=== PATIENT | female | born 1985 | race Caucasian/White ===

== ENCOUNTER 2016-09-03 00:33 | Inpatient (IN) | payer BC ==
[~2016-09-03] VITALS: Ht 162.6 cm; Wt 75.5 kg
[~2016-09-03 00:33] MED LIST: ACET-1256 PO; ALLDSR/24 PO
[2016-09-11 08:59] LABS: HEMATOCRIT 37.9 % (37-47); MEAN CORPUSCULAR HEMOGLOBIN 27.4 pg (25-34); MEAN CORPUSCULAR HGB CONC 32.2 g/dl (32-36); MEAN PLATELET VOLUME 10.2 fL (7.4-10.4); PLATELET COUNT 244 K/uL (130-400); RED BLOOD COUNT 4.46 M/uL (4.2-5.4); WHITE BLOOD COUNT 9.98 K/uL (4.8-10.8)
[2016-09-11] MEDS ORDERED: FLUCONAZOLE 100 MG TAB PO ONE (09:00)
[2016-09-11] MEDS ORDERED: LACTATED RINGER'S 1000ML 1,000 ML IV PRN (09:00)
[2016-09-11] MEDS: MISOPROSTOLTAB 50 MCG TAB PO SCH ×3 (09:02→17:53)
--- NOTE | 2016-09-11 09:03 | HISTORY & PHYSICAL EXAMINATION ---
DATE OF ADMISSION: 09/11/2016 CHIEF COMPLAINT: Scheduled induction of labor for post dates. HISTORY OF PRESENT ILLNESS: The patient is a 31-year-old female 1, para 0 at 41.1 weeks of gestation, which presenting for induction of labor for post dates. She has no complaints, no contractions, leakage of fluid, or vaginal bleeding. She reports good movements. She denies fever, chills, chest pain, shortness of breath, nausea, vomiting, epigastric or right upper quadrant pain. Her has been uncomplicated except reflux disease and constipation. PAST MEDICAL HISTORY: As above, allergic rhinitis, history of abnormal Pap smears and cryo of cervix. PAST SURGICAL HISTORY: Colposcopy with cryo in 2009. ALLERGIES: NITROFURANTOIN makes her dizzy, PYRIDIUM gives her nausea and vomiting. MEDICATIONS: Omeprazole 20 mg daily, Zantac 150 mg daily, Zoya 180 mg daily, and she does not take vitamins due to constipation. SOCIAL HISTORY: The patient denies smoking, alcohol or drug use. GYNECOLOGIC HISTORY: The patient denies any history of STDs including Chlamydia, gonorrhea, herpes. She has a history of HPV. LABS: Blood type is O positive, antibody screen negative, hepatitis B surface antigen negative, RPR nonreactive, rubella titer positive, GC chlamydia cultures were negative. One hour Glucola was 82 mg per deciliter. H\T\H was 11.8/35, platelets 333. GBS culture was negative on 07/31/2016. PHYSICAL EXAMINATION: GENERAL: The patient is alert, oriented x3, not in acute distress. VITAL SIGNS: Blood pressure is 108/73, pulse is 120. She is afebrile. CARDIOVASCULAR SYSTEM: S1, S2, RRR. LUNGS: Clear to auscultation bilaterally. ABDOMEN: Soft, gravid, Med 7 to 7-1/2 pounds. EXTREMITIES: Nontender, no edema. PELVIC EXAMINATION: She has a vulvar vaginal erythema, abundant white curdy discharge consistent with Kylee infection. Her cervix is 2 cm dilated, 50% effaced, posterior, -3, vertex. She is uncomfortable during exam. A bedside ultrasound was done and cephalic presentation. heart rate 140s, reactive, tocometer no contractions. ASSESSMENT AND PLAN: The patient is a 31-year-old G1, P0 at 41 weeks and 1 day of gestation presenting for induction of labor. Vital signs stable, afebrile. GBS negative. heart rate reassuring. She is found to have vaginal Kylee. Plan is admit, IV fluids, cervical ripening with misoprostol, Will avoid vaginal insertion due to ongoing Kylee and discomfort with exam. Start with oral misoprostol, Pitocin and AROM as needed Treat Kylee with 1 dose of Diflucan. She understands and agrees with the plan. All questions were answered. MTDD
[2016-09-11] MEDS: LACTATED RINGER'S 1000ML 1,000 ML IV SCH ×3 (09:07→20:08)
[2016-09-11 10:43] VITALS: Ht 162.6 cm; Wt 75.5 kg
[2016-09-11] MEDS ORDERED: ONDANSETRON INJ 2 MG/ML 2 ML VIAL IV PRN ×2 (11:00→20:15)
[2016-09-11] MEDS ORDERED: BUTORPHANOL TARTRATE 1 MG/ML VIAL IV PRN (11:00)
[2016-09-11] MEDS ORDERED: PRLSR20 PO (12:42)
[2016-09-11] MEDS ORDERED: RANI150T3 PO (12:42)
[2016-09-11] MEDS ORDERED: EpHEDrine SULFATE INJ 50 MG/ML AMP ONE (19:06)
[2016-09-11] MEDS ORDERED: BUPIVACAINE 0.25% 30 ML VIAL ONE ×2 (19:06→23:08)
[2016-09-11] MEDS ORDERED: FENTANYL 2MCG/ML ROPIV 1.25MG/ML 100ML BAG EPI ONE (19:06)
[2016-09-11] MEDS ORDERED: FENTANYL CITRATE INJ 50 MCG/1 ML 2 ML VIAL ONE ×2 (19:07→23:24)
[2016-09-11] MEDS ORDERED: LACTATED RINGER'S 1000ML 500 ML IV PRN ×2 (20:05→21:04)
[2016-09-11] MEDS ORDERED: NALOXONE HCL INJ 1 MG in SODIUM CHLORIDE 0.9% 1000ML 1,000 ML IV PRN ×4 (20:05)
[2016-09-11] MEDS ORDERED: EpHEDrine SULFATE INJ 50 MG/ML AMP IV PRN (20:15)
[2016-09-11] MEDS ORDERED: PROMETHAZINE HCL INJ 25 MG in SODIUM CHLORIDE 0.9% 50ML 50 ML IV PRN (20:15)
[2016-09-11] MEDS ORDERED: NALOXONE HCL 0.4 MG/1 ML VIAL/CARP IV PRN (20:15)
[2016-09-11] MEDS ORDERED: NALBUPHINE HCL INJ 10 MG/ML AMP IV PRN (20:15)
[2016-09-11] MEDS ORDERED: DiphenhydrAMINE HCL 50 MG/ML VIAL IV PRN (20:15)
[2016-09-11] MEDS ORDERED: FENTANYL 2MCG/ML ROPIV 1.25MG/ML 100ML BAG EPI PRN (20:15)
[2016-09-11] MEDS ORDERED: OXYTOCIN 30 UNITS/500ML NSS IV PRN (21:15)
[2016-09-11] MEDS ORDERED: CALCIUM CARBONATE 500 MG CHEWABLE PO PRN (23:45)
[2016-09-11] MEDS ORDERED: CALCIUM CARBONATE 500 MG CHEWABLE ONE (23:48)
[2016-09-12] VITALS (14 sets, daily range): BP systolic 88–113; BP diastolic 53–73; PULSE 65–97; TEMP 36.6–37.1; O2SAT 99–100
[2016-09-12] MEDS ORDERED: OXYTOCIN 30 UNITS/500ML NSS IV PRN (03:30)
[2016-09-12] MEDS ORDERED: SUPERCREAM 0.870 % 15GM JAR EXT PRN (03:30)
[2016-09-12] MEDS ORDERED: ACETAMINOPHEN 325 MG TAB PO PRN (03:30)
[2016-09-12] MEDS ORDERED: HYDROCORTISONE ACETATE 25 MG SUPP PR PRN (03:30)
[2016-09-12] MEDS ORDERED: D5W AND LACTATED RINGERS 1,000 ML IV SCH (03:30)
[2016-09-12] MEDS ORDERED: LANOLIN OINT EXT PRN ×2 (03:30)
[2016-09-12] MEDS ORDERED: ACETAMINOPHEN/CODEINE 300/30MG TAB PO ONE (04:31)
[2016-09-12] MEDS ORDERED: BENZOCAINE 20% AER SPR 82.5 GM CAN ONE (04:32)
[2016-09-12] MEDS ORDERED: IBUPROFEN 600 MG TAB ONE (04:32)
[2016-09-12] MEDS ORDERED: SODIUM CHLORIDE 0.9% 1000ML 1,000 ML IV SCH (07:30)
[2016-09-12 07:40] LABS: PARTIAL THROMBOPLASTIN RATIO 1.1; PROTHROMBIN TIME (PATIENT) 10.8 SECONDS (9.0-12.0)
[2016-09-12 07:43] LABS: HEMATOCRIT 23.9 % (37-47); MEAN CORPUSCULAR HEMOGLOBIN 28.8 pg (25-34); MEAN CORPUSCULAR HGB CONC 33.5 g/dl (32-36); MEAN PLATELET VOLUME 10.5 fL (7.4-10.4); PLATELET COUNT 195 K/uL (130-400); RED BLOOD COUNT 2.78 M/uL (4.2-5.4); WHITE BLOOD COUNT 19.53 K/uL (4.8-10.8)
--- NOTE | 2016-09-12 07:59 | Anesthesia Procedure Note ---
Anesthesia Epidural Removal Nt Date & Time September 12, 2016 at 07:58 Vital Signs Pain Intensity: 0.0 Notes Mental Status: alert / awake / arousable, participated in evaluation Nausea / Vomiting: adequately controlled Pain: adequately controlled Airway Patency, RR, SpO2: stable & adequate BP & HR: stable & adequate Hydration State: stable & adequate Neuraxial Anesthesia: was administered Anesthetic Complications: no major complications apparent, pt satisfied with anesthetic care Epidural: removed without complications, with tip intact
[2016-09-12] MEDS: OXYCODONE/ACETAMINOPHEN 5-325 TAB PO PRN ×2 (08:30→12:34)
[2016-09-12] MEDS: DOCUSATE SODIUM 100 MG CAP PO SCH ×2 (08:37→20:06)
[2016-09-12] MEDS: PRENATAL VITAMIN TAB PO SCH (08:38)
[2016-09-12] MEDS: FERROUS SULFATE 325 MG TAB PO SCH (08:38)
--- NOTE | 2016-09-12 08:52 | DELIVERY SUMMARY ---
DATE OF OPERATION: 09/12/2016 DATE OF DELIVERY: 09/12/2016. TIME OF DELIVERY OF BABY: 0238 a.m. TIME OF DELIVERY OF PLACENTA: 0251 a.m. DETAILS OF DELIVERY: The patient was found to be fully dilated and desired to push. She pushed for 15 minutes and perineal skin and muscles were tight around the head. Right mediolateral episiotomy was opened and head was delivered without difficulty. Shoulders were delivered with minimal traction. The baby was handed off to the mother where mouth and nose were suctioned, cord was clamped x2 and cut. It was 3-vessel cord. Vagina and perineum were checked for laceration. There was the episiotomy which was extended to lower right vaginal wall. There was a second degree left vaginal wall laceration on the lower 1/3 of vagina. Rectal exam was done and confirmed to be second degree. Gloves were changed. The vaginal wall extensions were repaired with 2-0 Vicryl in a running locked fashion and the episiotomy was repaired with 2-0 Vicryl in a running locked fashion bringing the vaginal mucosa together, perineal body and bulbocavernous muscles together and skin in subcuticular fashion. Placenta was found to be in the vagina, delivered spontaneous, intact and complete. Uterus was explored and found to be empty. Fundus was firm. Lower segment was cleared of all clots and debris. EBL was 250. Mom and baby tolerated the procedure well. The baby was a viable male infant, Apgars 8/10. No complications happened and I was present during the whole procedure. At the end of the procedure sponge, needle and instrument counts was correct x2. I attest to the content of the Intraoperative Record and any orders documented therein. Any exceptions are noted below. MTDD
[2016-09-12] MEDS: BENZOCAINE 20% AER SPR 82.5 GM CAN EXT PRN (09:00)
[2016-09-12] MEDS: IBUPROFEN 600 MG TAB PO PRN ×4 (10:36→23:58)
[2016-09-12] MEDS: OXYCODONE/ACETAMINOPHEN 10/325MG TAB PO PRN ×2 (16:24→20:06)
[2016-09-12 19:34] LABS: HEMATOCRIT 31.3 % (37-47)
[2016-09-13 00:01] VITALS: BP 111/77; PULSE 83; TEMP 36.7
[2016-09-13 04:30] VITALS: BP 93/63; PULSE 87; TEMP 36.5
[2016-09-13] MEDS: IBUPROFEN 600 MG TAB PO PRN ×5 (04:30→20:16)
[2016-09-13] MEDS: OXYCODONE/ACETAMINOPHEN 10/325MG TAB PO PRN ×3 (04:30→08:32)
[2016-09-13 06:37] LABS: HEMATOCRIT 28.8 % (37-47)
[2016-09-13 06:56] VITALS: BP 87/59; PULSE 88; TEMP 36.7
[2016-09-13] MEDS: PRENATAL VITAMIN TAB PO SCH (07:57)
[2016-09-13] MEDS: DOCUSATE SODIUM 100 MG CAP PO SCH ×2 (07:58→20:10)
[2016-09-13] MEDS: FERROUS SULFATE 325 MG TAB PO SCH (07:58)
[2016-09-13] MEDS ORDERED: DIPHTHERIA/TETANUS/PERTUSSIS 0.5 ML SYR/VIAL IM. ONE (09:00)
[2016-09-13] MEDS ORDERED: MEASLES, MUMPS & RUBELLA VIRUS VIAL SQ. ONE (09:00)
[2016-09-13] MEDS: OXYCODONE/ACETAMINOPHEN 5-325 TAB PO PRN ×3 (12:59→20:16)
[2016-09-13 15:30] VITALS: BP 124/78; PULSE 89; TEMP 36.7
[2016-09-13] MEDS ORDERED: NURSING VERBAL MED ORDER ONE (16:00)
[2016-09-13] MEDS ORDERED: MAGNESIUM HYDROXIDE SUSP 30 ML UDC PO PRN (16:30)
--- NOTE | 2016-09-13 18:11 | OB/GYN Progress Note ---
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 Subjective conversation w/ patient, physical exam Ambulation: ambulating normally Voiding: no voiding problems Passing Gas: Yes Diet Tolerance: Clear Liquids Lochia: Moderate Feeding Type: Breast Feeding Review of Systems Constitutional: No chills, No fatigue, No fever, No problem reported, No sweats , No weakness, No weight loss Respiratory: No cough, No dyspnea at rest, No dyspnea on exertion, No hemoptysis, No problem reported, No shortness of breath, No sputum, No wheezing Cardiac: No PND, No chest pain, No claudication, No edema, No orthopnea, No palpitations, No problem reported Breast: No breast lump, No breast pain, No change in shape, No nipple discharge , No problem reported, No see HPI Abdomen: No GI bleeding, No constipation, No diarrhea, No nausea, No pain, No problem reported, No vomiting Female : No abnormal vaginal bleeding, No dysuria, No hematuria, No incontinence, No problem reported, No see HPI, No urinary frequency, No vaginal discharge Objective Vital Signs Date Time Temp Pulse Resp B/P Pulse Ox O2 Delivery O2 Flow Rate FiO2 09/13/16 15:30 Room Air 09/13/16 15:30 36.7 89 20 124/78 Room Air 09/13/16 08:30 Room Air 09/13/16 06:56 36.7 88 20 87/59 Room Air 09/13/16 04:30 36.5 87 18 93/63 Room Air 09/13/16 00:01 36.7 83 20 111/77 Room Air 09/13/16 00:01 Room Air 09/12/16 19:30 36.8 88 20 113/73 Room Air Physical Exam General Appearance: WELL-APPEARING, WD/WN, NO APPARENT DISTRESS, uncomfortable Respiratory/Chest: chest non-tender, lungs clear, normal breath sounds, no respiratory distress, no accessory muscle use Cardiovascular: regular rate, rhythm, no edema, no gallop, no JVD, no murmur Abdomen: normal bowel sounds, non tender, soft, no organomegaly, no pulsatile mass Fundus: Firm Extremities: normal range of motion, non-tender, normal inspection, no pedal edema, no calf tenderness Laboratory Results Last 24 Hours Test 09/12/16 19:26 09/13/16 06:14 Hemoglobin 10.7 g/dL 9.7 g/dL Hematocrit 31.3 % 28.8 % Assessment and Plan Day Number: 1 Continue Routine Care: PPD #1 PPH received PRBC- feeling much better pt doing well disch home AM
[2016-09-13] MEDS ORDERED: MTR600X PO (18:14)
[2016-09-13] MEDS ORDERED: OXYC-57 PO (18:14)
[2016-09-13] MEDS ORDERED: CLC100 PO (18:14)
[2016-09-13] MEDS ORDERED: FRRS300 PO (18:14)
--- NOTE | 2016-09-13 18:16 | Discharge Instructions ---
Discharge Instructions Date of Service September 13, 2016. Admission Reason for Admission: Induction Discharge Discharge Diagnosis / Problem: Discharge Goals Goal(s): Routine recovery after delivery Activity Recommendations Activity Limitations: as noted below ACTIVITY RECOMMENDATIONS: * Gradual return to full activity over the next 2-3 weeks. * No lifting - nothing heavier than baby over the next 2-3 weeks. * Do not engage in vigorous exercise, sexual activity or sports until cleared by your physician. * Do not drive or operate any motorized equipment until cleared by your physician. * You may shower/bathe daily. BREAST CARE: If you are not breast feeding: * Wear a supportive bra 24 hours a day for one to two weeks. * Avoid stimulating your breasts and nipples as much as possible during the first few weeks after delivery. * When taking a shower, have the warm water hit your back, not breasts. * When your breasts feel full, apply ice packs. Usually three to four times a day helps ease the discomfort. * Take a mild pain medication (Tylenol/Motrin) when you are uncomfortable. If breast feeding: * Use breast milk to lubricate nipples. Lansinoh cream may be used for sore nipples. You do not need to remove cream prior to breast feeding. If using a different brand of cream, check the label for directions regarding removal of cream prior to nursing. * Wear a supportive bra. * If having problems with breasts or breast feeding, call a service delivery consultant or your health care provider. EPISIOTOMY CARE: After delivery, if you have an episiotomy (stitches), the following steps will ease discomfort and aid healing. * For the first 24 hours after delivery, place ice packs next to your episiotomy to help reduce swelling. * After the first 24 hour-period, sitz baths, either portable or in the tub, are suggested. A shower with a shower arm sprayed over the episiotomy may be comforting. * Barbara care should be done after each voiding and bowel movement. Squirt warm water from a plastic bottle over the perineum (region of the body between the anus and urinary opening) and pat dry. * Use Dermoplast to ease discomfort. Shake container. [place] directly over the episiotomy. * Place a Tucks on a clean sanitary pad next to your episiotomy. OVER THE COUNTER MEDICATION: * For discomfort or pain, you may use Acetaminophen (Tylenol), Ibuprofen (Advil ), or Naproxen (Aleve) following the package directions. * For constipation you may use Colace following the package directions. SPECIAL CARE INSTRUCTIONS: When you are discharged from the hospital, it is important for you to follow the instructions listed below: * During the first week at home, you should be able to care for yourself and your baby. In addition, the usual light household activities are encouraged. * Limit your activities to the way you feel. Do not try to clean the house or move furniture. Be sensible. * If you actively engage in sports and have done so up until the time of your delivery, you may resume these activities as soon as you feel able. This may take up to one month or even longer. Use good judgment. * Continue to take your vitamins for at least six weeks after the of your baby. * Your diet need not be limited unless you were on a special diet before your delivery. Breast-feeding mothers need around 2500 calories per day and at least 64-80 ounces of fluid per day (8 to 10 glasses). * You should eat foods from the four major food groups. Crash diets or fad diets are to be avoided. Eating lean meats, fresh fruits and vegetables, low-fat dairy products, high fiber foods and a regular exercise program, will help you get back to your pre- weight without putting your health at risk. * Constipation is sometimes a problem after delivery. Take a mild laxative as needed. If breast feeding, Milk of Magnesia is acceptable to use. You may use a suppository or Fleets enema if no episiotomy. * A daily shower or tub bath is suggested. Be sure to thoroughly and gently dry the perineum. * A bloody vaginal discharge will usually continue until around four weeks post . A small amount of bleeding may continue for as long as six weeks. Vaginal discharge changes from the bright red bleeding after delivery to pink then brownish and finally yellowish-pink before becoming white and disappearing. * Bleeding may increase with activity. Your first period may come in 4-8 weeks. If you are breast feeding, your period may be delayed even longer. * [place] (sex) can begin whenever both you and your partner feel comfortable and do not have any form of genital infection. It is recommended that you wait until after your return appointment and discuss with your physician. If you have questions, please talk to your health care practitioner. A condom should be used to prevent infection and . * Foreplay, gentle intercourse and lubrication is very important the first several times to prevent pain. A water-based lubricant such as K-Y jelly or Astroglide may be used. * Tampons may be used six weeks after delivery. * Douching should be avoided for 6 weeks after delivery. * If you have RH negative blood and your baby is RH positive, you will receive RHOGAM by injection prior to discharge. The nurse will give you a card to keep with you that has the date and place that you received RHOGAM after delivery. * During your care, you had a Rubella screen done to check for the presence of rubella antibodies in your blood. If your test was negative, you will receive a Rubella vaccine prior to discharge. This vaccine may cause a fever, soreness at the injection site and flu-like symptoms. If these symptoms persist, notify your health care practitioner. is not advised for three months after a Rubella vaccine. There is a higher chance of having a baby with defects if conceived within three months of getting the vaccine. * If you were discharged 24 hours from delivery or before 48 hours: Visiting nurses will come to your home 48 hours after discharge to assess you and your baby. The visiting nurse will meet with you while you are in the hospital to arrange a time and get directions to your home. * Verbalizes understanding of car seat law as reviewed with patient nursing. * Car Seat hand-out given and reviewed with patient by nursing. * Shaken baby information reviewed with patient by nursing. Call you doctor if: * Heavy bleeding (saturating several pads an hour) or passing clots the size of your fist. * A fever >101 degrees F (38.3 degrees C) on two occasions four hours apart and/or chills. * Unusual pain in the pelvic or vaginal areas. * "Baby Blues" lasting longer than two weeks. If you have any questions or concerns, call your health care practitioner at . FOLLOW-UP VISIT: * Please call the office at to schedule a 6 week examination. It is important you keep this appointment. * It is important for you to make arrangements for either yearly or twice yearly check-ups thereafter. . Current Hospital Diet Patient's current hospital diet: Regular OB Diet Discharge Diet Recommended Diet: Regular Diet Pending Studies Studies pending at discharge: no Medical Emergencies . Who to Call and When: Medical Emergencies: If at any time you feel your situation is an emergency, please call 911 immediately. . Non-Emergent Contact Non-Emergency issues call your: Specialist . . "Provider Documentation" section prepared by Juwan Mcintyre. . VTE Core Measure Inpt VTE Proph given/why not?: Treatment not indicated
[2016-09-13] MEDS ORDERED: BISACODYL 5 MG TABEC PO SCH (20:00)
[2016-09-13 23:45] VITALS: BP 101/68; PULSE 85; TEMP 36.8; O2SAT 99
[2016-09-14] MEDS: IBUPROFEN 600 MG TAB PO PRN ×3 (00:23→10:58)
[2016-09-14] MEDS: OXYCODONE/ACETAMINOPHEN 5-325 TAB PO PRN ×2 (00:24→10:58)
[2016-09-14 06:32] LABS: HEMATOCRIT 30.2 % (37-47); MEAN CELL VOLUME 88.3 fL (80-100); MEAN CORPUSCULAR HEMOGLOBIN 29.2 pg (25-34); MEAN CORPUSCULAR HGB CONC 33.1 g/dl (32-36); MEAN PLATELET VOLUME 9.9 fL (7.4-10.4); PLATELET COUNT 240 K/uL (130-400); RED BLOOD COUNT 3.42 M/uL (4.2-5.4)
[2016-09-14] MEDS ORDERED: BISACODYL 10 MG SUPP PR PRN (07:00)
[2016-09-14 07:10] VITALS: BP 101/66; PULSE 99; TEMP 36.8; O2SAT 99
[2016-09-14] MEDS: PRENATAL VITAMIN TAB PO SCH (07:23)
[2016-09-14] MEDS: DOCUSATE SODIUM 100 MG CAP PO SCH (07:23)
[2016-09-14] MEDS: FERROUS SULFATE 325 MG TAB PO SCH (07:23)
[2016-09-14 10:15] VITALS: BP_DIAS 66; PULSE 99; TEMP 36.8
[2016-09-14] MEDS: BENZOCAINE 20% AER SPR 82.5 GM CAN EXT PRN (10:58)
--- NOTE | 2016-09-16 08:23 | EDITING REQUIRED CODING QUERY ---
ANEMIA To promote full compliance with coding requirements relating to patient care, physician participation is requested in all cases of structural technician uncertainty. Please assist us with the question(s) below: Coding Question(s): The record reflects the following clinical documentation: Test 09/12/16 09/13/16 Hemoglobin 10.7 g/dL 9.7 g/ Hematocrit 31.3 % 28.8 % OB Progress note 09/13/16: PPH received PRBC- feeling much better If these findings indicate anemia, please indicate the type of anemia this patient had: (X) Acute blood loss anemia ( ) Acute postoperative anemia due to dilutional fluids ( ) Chronic blood loss anemia ( ) Iron deficient anemia due to blood loss ( ) Iron deficiency anemia ( ) Anemia, unspecified or other ( ) Other: (please specify) ( ) Unable to determine Thank you for your time, RUSS Parry, FURNACE BUILDER
--- NOTE | 2016-09-30 14:56 | DISCHARGE SUMMARY ---
DETAILS OF ADMISSION: The patient is a 31-year-old G1, P0 at 41 weeks and 1 day of gestation who presented to L&D for scheduled induction of labor on 09/11/2016. She received oral Cytotec and Pitocin and then delivered vaginally on 09/12/2016 in the morning at 2:38 a.m. See dictated delivery note for details. EBL was 250ml. period the patient had low blood pressures with episodes of dizziness . She was not able to ambulate and use the bathroom. Despite IV fluid hydration, her pressures stayed low and she was symptomatic. Her H&H was checked at that time and found to be 8.0/23.9. Decision was made to transfuse 2 units of packed red blood cells. The risk and benefits were discussed and an informed consent was obtained. Those were transfused on the morning of 09/12/2016. The patient improved clinically. Her repeat H& H increased to 10.7/31.2 She was able to ambulate and use the bathroom and blood pressure remained stable. On day #2 she was discharged home. Discharge instructions were given. Prescriptions were written for iron and pain and she is to be followed in the office. All questions were answered. ROSAURA
== END 2016-09-14 11:29 | disposition home or self-care (01) | DRG 774 ==
LOC: C.LD 09-11 07:38 → C.OBG 09-12 15:24
PROVIDERS: ADMIT Obstetrics & Gynecology; ATTEND Obstetrics & Gynecology
PROC: 0W8NXZZ Division of Female Perineum, External Approach (ICD-10-PCS; principal; 2016-09-12)
PROC: 0UQG0ZZ Repair Vagina, Open Approach (ICD-10-PCS; principal; 2016-09-12)
PROC: 3E0P7GC Introduction of Other Therapeutic Substance into Female Reproductive, Via Natural or Artificial Opening (ICD-10-PCS; principal; 2016-09-12)
PROC: 10E0XZZ Delivery of Products of Conception, External Approach (ICD-10-PCS; principal; 2016-09-12)
DX: O48.0 Post-term pregnancy (principal); O98.82 Other maternal infectious and parasitic diseases complicating childbirth; O71.4 Obstetric high vaginal laceration alone; D62 Acute posthemorrhagic anemia; O90.81 Anemia of the puerperium; B37.3 Candidiasis of vulva and vagina; O99.62 Diseases of the digestive system complicating childbirth; K21.9 Gastro-esophageal reflux disease without esophagitis; O99.52 Diseases of the respiratory system complicating childbirth; J30.9 Allergic rhinitis, unspecified; K59.00 Constipation, unspecified; Z3A.41 41 weeks gestation of pregnancy; Z37.0 Single live birth; Z87.42 Personal history of other diseases of the female genital tract; Z79.899 Other long term (current) drug therapy

== ENCOUNTER 2017-12-08 12:45 | Emergency (ER) | payer BC, OTHER ==
[~2017-12-08] VITALS: Ht 162.6 cm; Wt 69.9 kg
[~2017-12-08 12:45] MED LIST changes: -ACET-1256 PO; +CLC100 PO; +FRRS300 PO; +MTR600X PO; +OXYC-57 PO; +PRLSR20 PO; +RANI150T3 PO
[2017-12-08 12:55] VITALS: TEMP 36.9; Ht 162.6 cm; Wt 69.9 kg
[2017-12-08] MEDS ORDERED: PRED20TA2 PO ×2 (13:20→14:30)
--- NOTE | 2017-12-08 13:23 | EMERGENCY ROOM VISIT NOTE ---
ED Visit Note First contact with patient: 13:06 CHIEF COMPLAINT: Allergic reaction/Rash HISTORY OF PRESENT ILLNESS: This 32-year-old female patient presents to the emergency department by private vehicle after they developed gradual onset of hives and itching that started yesterday. She states the rash began on her forearms and has been spreading, now is on her torso and both of her legs as well as her neck. She states that the rash is very itchy. She has tried multiple ocpe-zon-eacsxln creams, ointments, and sprays for the itching without any improvement in her rash. The patient does not have swelling of the face and lips and denies any sensation of swelling in the throat. The patient has not had shortness of breath. Has not had previous reactions and like this before. There has been no known change in the patient's soaps, detergents, foods, medications. The patient does note that she has been spending a week at the [employer], so she may have had some new exposures, but she denies any history of food allergies or severe environmental allergies in the past. She denies any headaches, vision changes, chest pain, shortness of breath or wheezing, abdominal pain, nausea or vomiting, or urinary symptoms. REVIEW OF SYSTEMS: A complete 10 point review of systems was reviewed with the patient with pertinent positives and negatives as per history of present illness. All else were negative. ALLERGIES: Reviewed in chart, see below. MEDICATIONS: Reviewed in chart, see below. PMH: Reviewed in chart, see problem list below. SOCIAL HISTORY: Lives at home. She denies tobacco use. PHYSICAL EXAM:VITALS: Vitals are noted on the nurse's note and reviewed by myself. Vital signs stable. GENERAL: Pleasant and cooperative, in no acute distress, non-diaphoretic, well- developed well-nourished. THROAT: No pharyngeal edema or injection, no exudates or tonsillar hypertrophy. Airway patent. LUNGS: Clear to auscultation and breath sounds equal, no wheezes, rales, or rhonchi. No stridor. EYES: PERRLA, EOMI, no discharge or injection. NEUROLOGICAL: Alert and oriented to person, place, and time. Normal sensation to light and sharp touch. HEART: Regular rate without murmurs, ectopy, gallops, or rubs. SKIN: There is a diffuse urticarial rash noted on the bilateral arms, bilateral legs, and torso. The rash blanches. No evidence of secondary infection or cellulitis. The lips are not swollen. There is no periorbital swelling. EMERGENCY DEPARTMENT COURSE: I examined the patient. The patient was given PO Zantac and prednisone, she declined Benadryl because she has to drive herself home. She did feel much improved after these medications. She was provided with a prescription for prednisone taper, and was encouraged to continue taking Zantac and also to take Benadryl for her symptoms. She was also instructed regarding follow-up and return precautions, she verbalized understanding. Patient was discharged home in stable condition and ambulatory. Problem List Medical Problems: (1) AC PYELONEPHRITIS NOS Status: Resolved (2) ASTHMA, UNSPECIFIED Status: Chronic (3) Headache disorder Status: Chronic (4) URIN TRACT INFECTION NOS Status: Resolved Social History Problems: (1) TOBACCO USE DISORDER Status: Resolved Current/Historical Medications Scheduled Ferrous Sulfate (Ferrous Sulfate), 325 MG PO DAILY Omeprazole (Prilosec), 20 MG PO DAILY Prednisone (Prednisone Tab), 20 MG PO DAILY Allergies Coded Allergies: Clavulanic Acid (Unverified Allergy, Mild, 02/06/16) Penicillins (Unverified Allergy, Mild, 02/06/16) Amoxicillin (Verified Adverse Reaction, Unknown, GI SYMPTOMS, 09/11/16) Phenazopyridine (Verified Adverse Reaction, Unknown, GI SYMPTOMS, 09/11/16) n/v dizziness Vital Signs Date Time Temp Pulse Resp B/P (MAP) Pulse Ox O2 Delivery O2 Flow Rate FiO2 12/08/17 14:39 87 18 101/78 97 12/08/17 12:55 36.9 98 17 109/73 100 Room Air Medications Administered Medications (Trade) Dose Ordered Sig/Dontrell Route Start Time Stop Time Status Last Admin Dose Admin Prednisone (PredniSONE TAB) 60 mg NOW STAT PO 12/08/17 13:17 12/08/17 13:19 DC 12/08/17 13:47 60 MG Ranitidine HCl (zANTac TAB) 150 mg NOW ONCE PO 12/08/17 13:30 12/08/17 13:31 DC 12/08/17 13:47 150 MG Departure Information Impression Primary Impression: Allergic reaction Additional Impression: Hives Dispostion Home / Self-Care Condition GOOD Prescriptions Prednisone (Prednisone Tab) 20 Mg Tab 20 MG PO DAILY, #18 TAB 3 DAILY FOR 3 DAYS, THEN 2 DAILY FOR 3 DAYS, THEN 1 DAILY FOR 3 DAYS. Prov: MichelleIsaura CRNP 12/08/17 Referrals No Doctor, Assigned (PCP) Patient Instructions ED Allergic Reaction General Other, ED Urticaria, My [facility] Additional Instructions You have been treated in the Emergency Department for an Allergic Reaction. You have been treated and monitored in the Emergency Department appropriately. You should take Benadryl (diphenhydramine) 25-50 mg orally every 4-6 hours for the next several days until your itching and hives have resolved. This medication is [id number] and you will NOT need a prescription to purchase this at your local pharmacy. You should take Zantac (ranitidine) 150 mg orally once daily for the next 10 days. This medication is [id number] and you will NOT need a prescription to purchase this at your local pharmacy. You should continue taking the Zantac for the COMPLETION of the 7 days. This is to prevent a rebound allergic reaction in the event that allergens are still present in your system. You have been prescribed Prednisone taper to be taken over the next 9 days starting tomorrow. You received your first dose in the emergency department today. This is an anti-inflammatory medicine to be used to help minimize your symptoms. You should take the COMPLETE course of the medication. Drink plenty of fluids to stay well hydrated. As with every Emergency Department visit, you should follow-up with your primary care provider in 2-3 days for reevaluation. Return to the Emergency Department if your current symptoms worsen despite treatment course outlined above, or if you develop any of the following symptoms : wheezing, tongue or face swelling, tightness in your throat, shortness of breath or inability to catch your breath, or fainting. Problem Qualifiers Primary Impression: Allergic reaction Encounter type: initial encounter Qualified Codes: T78.40XA - Allergy, unspecified, initial encounter
[2017-12-08] MEDS ORDERED: RANITIDINE HCL 150 MG TAB PO ONE (13:30)
[2017-12-08 14:39] VITALS: BP 101/78; PULSE 87; O2SAT 97
== END 2017-12-08 14:41 | disposition home or self-care (01) ==
LOC: C.EDB 12:46 → C.EDD 14:41
DX: T78.40XA Allergy, unspecified, initial encounter (principal); X58.XXXA Exposure to other specified factors, initial encounter; L50.9 Urticaria, unspecified; J45.909 Unspecified asthma, uncomplicated; Z88.0 Allergy status to penicillin; Z88.1 Allergy status to other antibiotic agents; Z88.6 Allergy status to analgesic agent

== ENCOUNTER 2019-09-28 05:34 | Inpatient (IN) ==
[2019-09-28] MEDS ORDERED: CEFAZOLIN 2,000 MG in SYRINGE 0 ML IV SCH (06:00)
[2019-09-28] MEDS ORDERED: CITRIC ACID/SODIUM CITRATE 15 ML UDC PO SCH (06:00)
[2019-09-28] MEDS ORDERED: LACTATED RINGER'S 1,000 ML IV SCH ×2 (06:00→09:00)
[2019-09-28 06:18] LABS: Basophils # (auto) 0.02 K/uL (0-0.2); Basophils % (auto) 0.2 %; Eosinophils # (auto) 0.09 K/uL (0-0.5); Eosinophils % (auto) 0.9 %; Hematocrit (blood only) 36.7 % (37-47); Hemoglobin 12.3 g/dL (12.0-16.0); Immature Granulocytes # (auto) 0.24 K/uL (0.00-0.02); Immature Granulocytes % (auto) 2.4 %; Lymphocytes # (auto) 2.77 K/uL (1.2-3.4); Lymphocytes % (auto) 27.7 %; Mean Corpuscular Hemoglobin 29.6 pg (25-34); Mean Corpuscular Volume 88.4 fL (80-100); Mean Platelet Volume 10.1 fL (7.4-10.4); Monocytes # (auto) 0.81 K/uL (0.11-0.59); Monocytes % (auto) 8.1 %; Neutrophils # (auto) 6.06 K/uL (1.4-6.5); Neutrophils % (auto) 60.7 %; Platelet Count 236 K/uL (130-400); RDW Coefficient of Variation 14.6 % (11.5-14.5); RDW Standard Deviation 46.7 fL (36.4-46.3); Red Blood Count 4.15 M/uL (4.2-5.4); White Blood Count 9.99 K/uL (4.8-10.8)
[2019-09-28 06:21] LABS: Mean Corpuscular Hgb Conc 33.5 g/dL (32-36)
--- NOTE | 2019-09-28 06:39 | Anesthesiology Consultation ---
Date of Service September 28, 2019 Assessment & Plan (1) Encounter for pre-operative examination: Chart Review Chart Review: Acceptable Risk for Surgery and Patient NOT seen in Pre Admission Testing Consults Requested none History Surgery Operation Date: 09/28/19 07:30 Proposed Procedures p Primary Section; - Juwan Mcintyre MD s Bilateral Tubal Ligation - Juwan Mcintyre MD Height/Weight Height: 5 ft 4 in Weight: 80.286 kg Allergies Allergy/AdvReac Type Severity Reaction Status Date / Time Penicillins Allergy Mild Gastrointestinal Verified 09/28/19 06:33 Upset amoxicillin AdvReac Mild Gastrointestinal Verified 09/18/19 11:46 Upset clavulanic acid AdvReac Mild Gastrointestinal Verified 09/28/19 06:33 Upset phenazopyridine AdvReac Mild Gastrointestinal Verified 09/18/19 11:46 Upset Medications Home Medications Medication Instructions Recorded Confirmed Last Taken albuterol sulfate [ProAir HFA] 2 puff INHALATION DIRECTED PRN 02/23/19 09/18/19 Unknown cetirizine [Zyrtec] 10 mg PO QAM 02/23/19 09/18/19 Unknown ferrous sulfate 325 mg PO QAM 02/23/19 09/18/19 Unknown omeprazole 40 mg PO QAM 02/23/19 09/18/19 Unknown cholecalciferol (vitamin D3) 5,000 unit PO QAM 03/08/19 09/18/19 Unknown [Vitamin D3] alum-mag hydroxide-simeth [Mylanta 20 ml PO PM 09/18/19 09/18/19 Unknown Maximum Strength] calcium carbonate [Tums Ultra] 1,177 mg PO PM 09/18/19 09/18/19 Unknown doxylamine succinate [Unisom 25 mg PO HS 09/18/19 09/18/19 Unknown (doxylamine)] vitamin B complex-folic acid 50 mcg PO QAM 09/18/19 09/18/19 Unknown Active Medications Generic Name Dose Route Start Last Admin Trade Name Freq PRN Reason Stop Dose Admin Lactated Ringer's 1,000 mls @ 999 mls/hr 09/28/19 06:00 09/28/19 05:50 Lr IV 10/28/19 05:59 999 mls/hr .Q1H1M NELLIE Administration NPO Date Last Intake of Fluids: 09/27/19 Time Last Intake of Fluids: 21:00 Date Last Intake of Solids: 09/27/19 Time Last Intake of Solids: 21:00 Past Medical History Medical History Asthma WELL CONTROLLED> RARE INH USE RAGHAVENDRA II (cervical intraepithelial neoplasia II) 2010 Fallen bladder GERD (gastroesophageal reflux disease) History of blood transfusion 3RD DEGREE TEAR AFTER 1ST DELIVERY> SEP 12 2016 Iron deficiency Kidney stone PASSED Slow to wake up after anesthesia Exercise / Class Metabolic Activity II 4-5 Yardwork/Stairs/Walk up hill Past Family History Family History Other Cancer Past Surgical History Surgical History H/O colposcopy with cervical biopsy 2010 History of tooth extraction WISDOM No pertinent past surgical history Past Anesthesia History No Hx of Anesthesia Complications and No Family Hx of Anesthesia Complications History of PONV No Hx of PONV and No Hx of Motion Sickness Social History Smoking Status: Former smoker Do You Dip or Chew Tobacco: No Smoking End Date: 2006 Hx Alcohol Use: No Hx Substance Use: No substance use type: does not use Physical Exam Vital Signs Last Vital Signs Temp 37.0 C 09/28/19 05:46 Pulse 122 H 09/28/19 05:46 Resp 18 09/28/19 05:46 BP 105/74 09/28/19 05:46 Testing Laboratory Results 09/28/19 06:03
[2019-09-28] MEDS ORDERED: fentaNYL citrate 100 MCG/2 ML VIAL ONE (06:47)
[2019-09-28] MEDS ORDERED: MoRPHine SULFATE PF 1 MG/ML 10 ML AMP/VIAL ONE (06:47)
--- NOTE | 2019-09-28 07:21 | History & Physical Bridge Note ---
Date of Service September 28, 2019 History & Physical Bridge Note I have examined the patient, reviewed the History & Physical and in the interval since the performance of the History & Physical I have noted the following changes of clinical significance: no changes noted
[2019-09-28] MEDS ORDERED: PHENYLEPHRINE 100MCG/ML 5ML SYR ONE (07:30)
[2019-09-28] MEDS ORDERED: OXYTOCIN 10 UNITS/ML VIAL ONE (07:30)
[2019-09-28] MEDS ORDERED: ONDANSETRON INJ 2 MG/ML 2 ML VIAL ONE (07:30)
[2019-09-28] MEDS ORDERED: OXYTOCIN 10 UNITS/ML VIAL INJ ONE (08:11)
[2019-09-28] MEDS ORDERED: MoRPHine SULFATE PF 1 MG/ML 10 ML AMP/VIAL INT SPINAL ONE (08:13)
[2019-09-28] MEDS ORDERED: NALOXONE HCL 0.4 MG/1 ML VIAL/CARP IV PRN (08:13)
[2019-09-28] MEDS ORDERED: LACTATED RINGER'S 500 ML IV PRN (08:13)
[2019-09-28] MEDS ORDERED: ePHEDrine sulfate 50 MG/ML AMP IV PRN (08:13)
[2019-09-28] MEDS ORDERED: ONDANSETRON INJ 2 MG/ML 2 ML VIAL IV PRN (08:13)
[2019-09-28] MEDS ORDERED: DiphenhydrAMINE HCL 50 MG/ML VIAL IV PRN (08:13)
[2019-09-28] MEDS ORDERED: MEPERIDINE HCL 25 MG/ML CARP/VIAL IV PRN (08:13)
[2019-09-28] MEDS ORDERED: NALOXONE HCL 0.08 MG in SYRINGE 1.8 ML IV PRN (08:13)
[2019-09-28] MEDS ORDERED: NALOXONE HCL 1 MG in SODIUM CHLORIDE 0.9% 1000ML 1,000 ML IV PRN (08:13)
[2019-09-28] MEDS ORDERED: MoRPHine SULFATE 2 MG/ML CARP IV PRN (08:13)
[2019-09-28] MEDS ORDERED: NO NARCOTICS OR SEDATIVES SCH (08:15)
[2019-09-28] MEDS ORDERED: SODIUM CHLORIDE 0.9% 1000ML 1,000 ML IV SCH (08:15)
[2019-09-28] MEDS ORDERED: MIDAZOLAM HCL 1 MG/ML 2ML VIAL ONE ×2 (08:21→08:29)
[2019-09-28] MEDS ORDERED: miSOPROStoL 200 MCG TAB ONE (08:45)
[2019-09-28] MEDS ORDERED: miSOPROStoL 200 MCG TAB PR ONE (08:46)
[2019-09-28] MEDS ORDERED: SENNA 8.6 MG TAB PO PRN (08:59)
[2019-09-28] MEDS ORDERED: BENZOCAINE 20% AER SPR 82.5 GM CAN EXT PRN (08:59)
[2019-09-28] MEDS ORDERED: SUPERCREAM 0.870% 15 GM JAR EXT PRN (08:59)
[2019-09-28] MEDS ORDERED: HYDROCORTISONE ACETATE 25 MG SUPP PR PRN (08:59)
[2019-09-28] MEDS ORDERED: DIPHTHERIA/TETANUS/PERTUSSIS 0.5 ML SYR/VIAL IM ONE (08:59)
[2019-09-28] MEDS ORDERED: MAGNESIUM HYDROXIDE SUSP 30 ML UDC PO PRN (08:59)
--- NOTE | 2019-09-28 08:59 | Post Operative Brief Note ---
Immediate Post Op Note v1 Date of Surgery September 28, 2019 Pre & Post Diagnosis Operation Date: 09/28/19 07:30 Pre-Op Diagnosis: 39 2/7 Weeks Gestation; Desires Elective Section and Bilateral Tubal Ligation Post-Op Diagnosis: Same as Preop I identified the patient and participated in the time-out.: Yes Procedure Operation Date: 09/28/19 07:30 Actual Procedures p Primary Section; Live Female Infant at 0807(Bilateral) - Juwan Mcintyre MD s Bilateral Tubal Ligation - Juwan Mcintyre MD Surgeon Juwan Mcintyre MD Automation And Controls Supervisor Gemma Mensah Estimated Blood Loss 700 Findings Consistent with Post-Op Diagnosis Drains Espinosa Catheter
--- NOTE | 2019-09-28 08:59 | Anesthesiology Progress Note ---
Date of Service September 28, 2019 Anesthesia Post Procedure Vital Signs Vital Signs: Temp Pulse Resp BP Pulse Ox 09/28/19 08:55 86 104/63 09/28/19 08:53 81 100 09/28/19 05:46 37.0 C 122 H 18 105/74 09/28/19 05:44 37.0 C 122 H 18 Transfer of Care Handoff Completed per policy Notes Mental Status: alert / awake / arousable and participated in evaluation Patient Amnestic to Procedure: No Nausea / Vomiting: adequately controlled Pain: adequately controlled Airway Patency, RR, SpO2: stable & adequate BP & HR: stable & adequate Hydration State: stable & adequate Neuraxial Anesthesia: was administered and sensory block is resolving Anesthetic Complications: no major complications apparent and Pt Satisfied with anesthetic care
[2019-09-28] MEDS: KETOROLAC 30 MG/ML VIAL IV PRN ×2 (09:40→15:42)
--- NOTE | 2019-09-28 10:46 | Operative Report (OR) ---
DATE OF OPERATION: 09/28/2019 INDICATION FOR PROCEDURE: This is a 34-year-old G2, P1 at 39+ weeks. The patient had a previous vaginal delivery with fourth degree laceration. She therefore opted to undergo a primary section with bilateral tubal ligation. PREOPERATIVE DIAGNOSES: 1. at term. 2. History of fourth degree laceration in previous . 3. Undesired fertility. POSTOPERATIVE DIAGNOSES: 1. at term. 2. History of fourth degree laceration in previous . 3. Undesired fertility. PROCEDURE: section and bilateral tubal ligation. SURGEON: Juwan Mcintyre MD. [employer] SALES REPRESENTATIVE: Andria Mensah PA-C. ANESTHESIA: Spinal. ESTIMATED BLOOD LOSS: 700 mL. URINE OUTPUT: 125 mL clear urine at the end of the procedure. INTRAVENOUS FLUIDS: 1500 mL of lactated Ringer's. FINDINGS: Normal live infant in cephalic presentation with nuchal cord x1. Details of infant's information is in the pediatric record. Uterus, tubes, and adnexa appeared grossly normal. Abdominal findings otherwise is unremarkable. PATHOLOGY: Placenta, left and right fallopian tubes. COMPLICATIONS: None. DRAINS: Espinosa catheter. DESCRIPTION OF PROCEDURE: The patient was taken to the operating room where she was prepped and draped in normal sterile fashion. Timeout was called. A low transverse Pfannenstiel incision was made with a scalpel and carried down to the fascia. Fascia was incised in the midline and extended laterally on both sides. Rectus abdominis sheath was identified. A midportion of the rectus abdominis sheath was identified and entered sharply. Once inside the abdomen, findings were as dictated above. An Dino retractor was placed in the abdomen for retraction. Vesicouterine peritoneum was sharply dissected off the lower segment of the uterus. A low transverse incision was made on the uterus with a scalpel and extended laterally on both sides. Infant was delivered. There was nuchal cord which was easily reduced. was easily delivered. Cord was clamped and cut after 30 seconds and handed over to the waiting pediatric team. Cord blood was obtained. Placenta was manually removed. Uterus was exteriorized and cleared of all clots and debris. The uterus was closed in a locking fashion with Vicryl stitch. A second closure was performed in a running fashion with another Vicryl as well. There was good hemostasis. The left and right fallopian tubes were identified by surgeon and physical therapy assistant instructor. Mid portion of the fallopian tube was identified. A modified [place] tubal ligation was performed on both sides. Specimens sent to pathology for pathological analysis. There was good hemostasis. Uterus was returned to the abdominal cavity. Copious amount of irrigation was used to irrigate the abdomen. The fascia was closed in a running fashion using Vicryl stitch. SubQ was closed with plain suture and skin was closed with osvaldo. All instruments were removed from the abdomen including sponges, needles and retractors. Baby and mother are doing well in recovery and sent to recovery in stable condition. I attest to the content of the Intraoperative Record and any orders documented therein. Any exception s are noted below.
[2019-09-28] MEDS: SIMETHICONE 80 MG CHEW PO SCH ×3 (12:46→20:19)
[2019-09-28] MEDS: OXYTOCIN 20 UNITS in LACTATED RINGER'S 1,000 ML IV SCH ×2 (13:00→21:30)
[2019-09-28] MEDS ORDERED: LACTATED RINGER'S 500 ML IV ONE (15:19)
[2019-09-28] MEDS: NALBUPHINE HCL INJ 10 MG/ML AMP IV PRN ×2 (15:43→20:19)
[2019-09-28] MEDS: DOCUSATE SODIUM 100 MG CAP PO SCH (20:19)
[2019-09-28] MEDS: CALCIUM CARBONATE 500 MG CHEWABLE TAB PO PRN (22:36)
[2019-09-29] MEDS: KETOROLAC 30 MG/ML VIAL IV PRN (01:20)
[2019-09-29] MEDS ORDERED: DC INTRASPINAL MORPHINE SCH (02:13)
[2019-09-29] MEDS ORDERED: PROMETHAZINE HCL 25 MG in SODIUM CHLORIDE 0.9% 50 ML IV PRN (02:13)
[2019-09-29] MEDS ORDERED: DiphenhydrAMINE HCL 50 MG/ML VIAL IV PRN (02:13)
[2019-09-29] MEDS ORDERED: ONDANSETRON INJ 2 MG/ML 2 ML VIAL IV PRN (02:13)
[2019-09-29] MEDS ORDERED: ZOLPIDEM TARTRATE 5 MG TAB PO PRN (02:13)
[2019-09-29] MEDS: IBUPROFEN 600 MG TAB PO PRN ×4 (05:56→20:01)
[2019-09-29] MEDS: OXYCODONE/ACETAMINOPHEN 5mg/325mg TAB PO PRN ×3 (05:57→20:00)
[2019-09-29 07:00] LABS: Basophils # (auto) 0.02 K/uL (0-0.2); Basophils % (auto) 0.1 %; Eosinophils # (auto) 0.12 K/uL (0-0.5); Eosinophils % (auto) 0.8 %; Hematocrit (blood only) 36.9 % (37-47); Hemoglobin 12.2 g/dL (12.0-16.0); Immature Granulocytes # (auto) 0.22 K/uL (0.00-0.02); Immature Granulocytes % (auto) 1.4 %; Lymphocytes # (auto) 3.22 K/uL (1.2-3.4); Lymphocytes % (auto) 20.5 %; Mean Corpuscular Hemoglobin 29.3 pg (25-34); Mean Corpuscular Hgb Conc 33.1 g/dL (32-36); Mean Corpuscular Volume 88.5 fL (80-100); Mean Platelet Volume 10.1 fL (7.4-10.4); Monocytes # (auto) 1.12 K/uL (0.11-0.59); Monocytes % (auto) 7.1 %; Neutrophils # (auto) 11.01 K/uL (1.4-6.5); Neutrophils % (auto) 70.1 %; Platelet Count 226 K/uL (130-400); RDW Coefficient of Variation 14.6 % (11.5-14.5); RDW Standard Deviation 46.9 fL (36.4-46.3); Red Blood Count 4.17 M/uL (4.2-5.4); White Blood Count 15.71 K/uL (4.8-10.8)
--- NOTE | 2019-09-29 07:40 | Obstetrical Progress Note ---
Date of Service September 29, 2019 Assessment & Plan Admission and Anticipated Discharge Date Admission Date: September 28, 2019 Subjective Patient is seen and examined. She feels well, no complaints. Pain is under control with oral meds. Ambulating without dizziness Voiding without difficulty Tolerated clears and crackers with out N&V waiting for regular diet Flatus + BM neg Bleeding is minimal No fever/ chills/ CP/ SOB/ N&V/ Leg pain Vital Signs Temp Pulse Resp BP Pulse Ox 09/29/19 03:35 36.5 C 73 18 97/51 L 09/29/19 02:05 16 96 09/29/19 01:05 18 96 09/29/19 00:05 36.5 C 83 16 95/61 L 97 09/28/19 23:05 16 96 09/28/19 22:00 20 97 09/28/19 21:00 20 97 09/28/19 20:20 36.6 C 87 20 99/68 L 97 Lab Results 09/28/19 09/28/19 09/29/19 Range/Units 06:03 06:03 06:20 WBC 9.99 15.71 H (4.8-10.8) K/uL RBC 4.15 L 4.17 L (4.2-5.4) M/uL Hgb 12.3 12.2 (12.0-16.0) g/dL Hct 36.7 L 36.9 L (37-47) % MCV 88.4 88.5 (80-100) fL MCH 29.6 29.3 (25-34) pg MCHC 33.5 33.1 (32-36) g/dL RDW Std Deviation 46.7 H 46.9 H (36.4-46.3) fL RDW Coeff of Ambreen 14.6 H 14.6 H (11.5-14.5) % Plt Count 236 226 (130-400) K/uL MPV 10.1 10.1 (7.4-10.4) fL Immature Gran % (Auto) 2.4 1.4 % Neut % (Auto) 60.7 70.1 % Lymph % (Auto) 27.7 20.5 % [place] % (Auto) 8.1 7.1 % Eos % (Auto) 0.9 0.8 % Baso % (Auto) 0.2 0.1 % Immature Gran # (Auto) 0.24 H 0.22 H (0.00-0.02) K/uL Neut # (Auto) 6.06 11.01 H (1.4-6.5) K/uL Lymph # (Auto) 2.77 3.22 (1.2-3.4) K/uL [place] # (Auto) 0.81 H 1.12 H (0.11-0.59) K/uL Eos # (Auto) 0.09 0.12 (0-0.5) K/uL Baso # (Auto) 0.02 0.02 (0-0.2) K/uL Blood Type O Positive Antibody Screen NEGATIVE PE: General: Alert, orientedx3, NAD CVS: S1S2 RRR Lungs; CTAB Abd: soft, NT, ND, BS+, fundus firm, below Umbilicus Incision/ Dressing: Clean, dry, intact Perineum intact, Lochia rubra minimal Ext; NT, no edema AP: 34 yo s/p C Section, pod# 1 VSS Afebrile doing well Continue routine postop care Encourage ambulation, PO intake All questions were answered Results & Data ([facility]) Vital Signs (Past 12 Hours) Vital Signs Temp Pulse Resp BP Pulse Ox 09/29/19 03:35 36.5 C 73 18 97/51 L 09/29/19 02:05 16 96 09/29/19 01:05 18 96 09/29/19 00:05 36.5 C 83 16 95/61 L 97 09/28/19 23:05 16 96 09/28/19 22:00 20 97 09/28/19 21:00 20 97 09/28/19 20:20 36.6 C 87 20 99/68 L 97
[2019-09-29] MEDS: DOCUSATE SODIUM 100 MG CAP PO SCH ×2 (08:33→20:01)
[2019-09-29] MEDS: PRENATAL VITAMIN 1 TAB PO SCH (08:33)
[2019-09-29] MEDS: SIMETHICONE 80 MG CHEW PO SCH ×4 (08:33→21:00)
[2019-09-29] MEDS: FERROUS SULFATE 325 MG TAB PO SCH (08:34)
[2019-09-29] MEDS: PANTOprazole 40 MG TAB PO SCH (09:41)
[2019-09-29] MEDS: CALCIUM CARBONATE 500 MG CHEWABLE TAB PO PRN (15:48)
[2019-09-29] MEDS ORDERED: bisacodyL 5 MG TABEC PO SCH (20:00)
[2019-09-30] MEDS: IBUPROFEN 600 MG TAB PO PRN ×2 (02:26→06:19)
[2019-09-30] MEDS: OXYCODONE/ACETAMINOPHEN 5mg/325mg TAB PO PRN ×2 (02:27→06:18)
[2019-09-30 06:26] LABS: Hematocrit (blood only) 32.3 % (37-47); Hemoglobin 10.6 g/dL (12.0-16.0)
[2019-09-30] MEDS: DOCUSATE SODIUM 100 MG CAP PO SCH (08:29)
[2019-09-30] MEDS: PRENATAL VITAMIN 1 TAB PO SCH (08:29)
[2019-09-30] MEDS: FERROUS SULFATE 325 MG TAB PO SCH (08:29)
[2019-09-30] MEDS: SIMETHICONE 80 MG CHEW PO SCH (08:29)
[2019-09-30] MEDS: PANTOprazole 40 MG TAB PO SCH (08:31)
--- NOTE | 2019-09-30 08:58 | Obstetrical Progress Note ---
Date of Service September 30, 2019 Assessment & Plan Admission and Anticipated Discharge Date Admission Date: September 28, 2019 Physical Exam Physical Exam: abdomen soft and non tender incision is clean and dry passing flatus no calf tenderness ambulating well vaginal bleeding scant hgb 10.6 Results & Data ([facility]) Vital Signs (Past 12 Hours) Vital Signs Temp Pulse Resp BP 09/30/19 00:05 36.6 C 77 16 87/60 L
[2019-09-30] MEDS ORDERED: bisacodyL 10 MG SUPP PR PRN (08:59)
--- NOTE | 2019-10-01 04:06 | Discharge Summary (DS) ---
Ms. Lee is a 2, para 2. Her first delivery was vaginal delivery. She had extensive laceration of the perineum, which required several repairs and 6 months to recover from. She requested a to protect the repair. She was admitted the day of admission. She was taken to the OR. Her preoperative hemoglobin was 12.2, postoperatively hemoglobin was 10.6. Given prophylactic antibiotics. Bleeding was minimal. Surgery went well. Bowel sounds returned promptly. She remained afebrile throughout her whole postoperative day. On 09/30/2019, she was ambulating well, eating well, pain was well controlled with a combination of Percocet and Motrin. Incision was clean and dry. Vaginal bleeding was scant. She requested discharge. Was told to come back for removal of osvaldo and to call if she had temperature over 100 or any heavy bleeding. ROSAURA
== END 2019-09-30 11:05 | disposition home or self-care (01) | DRG 788 ==
LOC: 4S1 05:34 → EDSTATUS 08:50 → 4S2 11:30
PROC: M.PPTLD (2019-09-28 07:30)

== ENCOUNTER 2024-02-05 17:05 | Inpatient (IN) ==
--- OUTSIDE RECORDS SUMMARY | 2024-02-05 17:10 | External Medical Summary | Summary of Care ---
Author Name Unknown Organization [facility] Address [address] [place] [address] Phone [phone] Care Team Providers Care Diagnostics Tech Name Role Phone Savannah Lee Primary Care Provider [phone] Reason for Visit * Reason Comments eRx-Medication Refill Encounter Details Date Type Department Care Team (Late st Contact Info) Description 01/27/2024 Refill Otolaryngology [facility] [address] [place] [address] Ivanna Appiah PA-C [address] [place] [id number] Allergies Active Allergy Reactions Criticality Noted Date Comments Nitrofurantoin 04/02/2004 dizzy Phenazopyridine Hcl Nausea/vomiting 03/25/2012 documented as of this encounter (statuses as of 01/27/2024) Medications Medication Sig Dispensed Refills Start Date End Date Status ferrous sulfate (FEOSOL) 325 (65 FE) MG Tablet Take 1 Tablet by mouth daily with breakfast. Active Cholecalciferol (VITAMIN D-3) 25 MCG (1000 UT) Capsule Take 1 Cap by mouth daily. 04/14/2019 Active Loratadine 10 MG Oral Capsule Take 1 Capsule by mouth in the morning. Active Cetirizine HCl 10 MG Oral Tablet (ZyrTEC) Take 1 Tablet by mouth in the morning. Active Albuterol Sulfate HFA 108 (90 Base) MCG/ACT Inhalation Aerosol SolutionIndication s:Bronchitis, complicated,Bronch ospasm, exercise-induced Inhale by mouth 2 Puffs every 6 hours as needed for Wheezing. 18 g 2 09/17/2021 Active Vitamin B12 100 MCG Oral Tablet Take by mouth daily. Active Fluocinolone Acetonide Scalp 0.01 % External Oil ([place]oothe/FS Scalp) Apply to outer ears at night 3 times a week. 118.28 mL 1 12/29/2022 Active Fluticasone Propionate 50 MCG/ACT Nasal Suspension (Flonase) Administer 2 Sprays into each nostril in the morning. 48 g 3 04/20/2023 Active LORazepam 1 MG Oral Tablet (Ativan) Take 1 Tablet by mouth every 6 hours as needed for Anxiety. 06/26/2022 Active Famotidine 20 MG Oral Tablet (Pepcid)Indication s:Gastroesophageal reflux disease without esophagitis Take 1 Tablet by mouth every night at bedtime. 90 Tablet 5 08/30/2023 Active Escitalopram Oxalate 20 MG Oral Tablet (Lexapro) Take 1 Tablet by mouth in the morning. 90 Tablet 3 08/30/2023 Active Drospirenone-Ethin yl Estradiol 3-0.02 MG Oral Tablet (NANCY)Indications:P MS (premenstrual syndrome) Take 1 Tablet by mouth in the morning. Can take active pills continuously. 84 Tablet 4 08/30/2023 Active Omeprazole 40 MG Oral Capsule Delayed Release (PriLOSEC)Indicati ons:Gastroesophage al reflux disease without esophagitis TAKE 1 CAPSULE BY MOUTH ONCE DAILY 1 HOUR BEFORE THE FIRST MEAL OF THE DAY 90 Capsule 1 08/30/2023 Active Amoxicillin-Pot Clavulanate 875-125 MG Oral Tablet (Augmentin) Take 1 Tablet by mouth in the morning and 1 Tablet before bedtime. Do all this for 7 days. 14 Tablet 01/27/2024 02/03/2024 Active documented as of this encounter (statuses as of 01/27/2024) Active Problems Problem Noted Date Diagnosed Date Chronic rhinitis 01/27/2024 Obesity, Class I, BMI 30.0-34.9 (see actual BMI) 08/12/2021 Gastroesophageal reflux disease without esophagi tis 03/08/2019 documented as of this encounter (statuses as of 01/27/2024) Resolved Problems Problem Noted Date Diagnosed Date Resolved Date Overweight (BMI 25.0-29.9) 08/12/2021 0 08/12/2021 Non-recurrent acute serous o titis media of left ear 03/08/2019 03/14/2019 10 weeks gestation of 03/08/2019 06/09/2019 Hyperemesis gravidarum 03/08/201906/09 Perineal pain in female 03/03/201909/17 Overview: Pain unresolving after first delivery in area of episiotomy. She was diagnosed approx 6mths with pudenal neuralgia and perineal pain; had PT and trigger point [place] [facility] 03/01/2019 10/05/2019 Overview: Blood products given with first delivery due to vaginal wall laceration Supervision of other normal 02/17/2019 10/05/2019 Overview: 07/07/2019 administered TDAP. Roma Bautista LPN Well adult exam 02/22/2018 06/02/2022 Overview: Pap 2018 & HPV neg. , 2015, 2014 WNL ADVANCE DIRECTIVE INFORMATION 02/15/2017 03/14/2019 Overview: none , normal first 01/16/2016 07/0 08/2016 Overview: Patient given flu vaccine. 03/09/2016 Alma Rosa Hoover RN 07/14/2016 Tdap Vaccine administered per clinic protocol. Pt given VIS(vaccine information sheet) Liane Peters RN Pt scheduled for IOL on Wednesday09/11/16 Cervical high risk human pap illomavirus (HPV) DNA test positive 05/15/2011 02/22/2018 Overview: November 2008 Pap negative September 2009 Pap ASCUS, HR HPV positive October 2009 Colpo --> RAGHAVENDRA 20 Apr 2011 Pap negative, missed follow up pap August 2012 Pap negative September 2013 Pap - ASCUS, HR HPV positive - will recommend colpo Allergic rhinitis 01/23/2004 03/14/2019 Urinary tract infection 01/23/200403/19 documented as of this encounter (statuses as of 01/27/2024) Immunizations Name Administration Dates Next Due COVID-19 mRNA, LNP-s, No Pre serve, 2-Dose Series (Moderna) 11/27/2020,10/30/2020 Seasonal Influenza Vac., MDV , IM, 0.5 mL (Fluzone) 02/03/2013 Seasonal Influenza, PF, 6 M & above, IM , (FluLaval or Fluzone) 02/26/2023,01/25/2020,03/09/2019, 017 Seasonal Influenza, Quadriva lent, No Preserve, IM 03/09/2016 TDAP (age 10 and older)(Boostrix) 07/07/2019, TDAP, Age 7 and older, IM (Adacel) 10/11/2006 documented as of this encounter Social History Tobacco Use Types Packs/Day Years Used Date Smoking Tobacco: Former Cigarettes Q uit: 03/26/2008 Passive Smoke Exposure: Past Smokeless Tobacco: Never Alcohol Use Standard Drinks/Week Comments No 0 (1 standard drink = 0.6 oz pur e alcohol) PHQ-2 Answer Date Recorded PHQ Adult Total Score 0 08/30/2023 Hunger Vital Sign Answer Date Recorded Within the past 12 months, y ou worried that your food would run out before you got the money to buy more. Never true 09/22/19 23 Within the past 12 months, t he food you bought just didn't last and you didn't have money to get more. Never true 09/21/2022 Pick[place] Depression Scale Answer Date Recorded Pick[place] Depression Scale Score 0 04/02/2020 The thought of harming myself has occurred to me . (Pt Reported) 04/02/2020 Utilities Answer Date Recorded Do you have trouble paying y our heating, water, or electric bill? (Adult - for ages 18 years and over) Not on file 10/05/2023 Is your family able to pay t he heat, water, or electric bill? (Household - for ages 0-17 years) Not on file 10/05/2023 Does your family have access to good internet? (Household - for ages 0-17 years) Not on file 10/05/2023 Social Connections Answer Date Recorded How often do you feel lonely or isolated from those around you? (Adult - for ages 18 years and over) Not on file 10/05/2023 Sex and Gender Information Value Date Recorded Sex Assigned at Female 06/29/2019 4:08 PM EDT Gender Identity Female 06/29/2019 4:08 PM EDT Sexual Orientation Straight 06/29/2019 4: 08 PM EDT Job Start Date Occupation Industry Not on file Not on file Not on file documented as of this encounter Functional Status Functional Status Response Date of Assess ment Are you deaf or do you have serious difficulty h earing? No 03/08/2019 Are you blind or do you have serious difficulty seeing, even when wearing glasses? No 03/08/2019 Do you have serious difficul ty walking or climbing stairs? (5 years old or older) No 03/08/2019 Do you have difficulty dress ing or bathing? (5 years old or older) No 03/08/2019 Because of a physical, menta l, or emotional condition, do you have difficulty doing errands alone such as visiting a doctor s office or shopping? (15 years old or older) No 03/08/20 19 Cognitive Status Response Date of Assessm ent Because of a physical, menta l, or emotional condition, do you have serious difficulty concentrating, remembering, or making decisions? (5 years old or older) No 03/08/2019 documented as of this encounter Miscellaneous Notes * Telephone Encounter - Arik Morin PA-C - 01/27/2024 4:34 PM EDT Refused Prescriptions: Disp Refills Fluocinolone Acetonide Scalp 0.01 % Telecom Sales Consultant*118.28*0 Sig: apply to outer ears at night three times a weekRefused By: ARIK MORIN for Refusal: Managed by another physician documented in this encounter Plan of Treatment Upcoming Encounters Date Type Department Care Team (Late st Contact Info) Description 03/09/2024 11:50 AM EST Office Visit [facility] [address] [place] [phone] Savannah Lee DO [address] [facility] [facility] [address] Health Maintenance Due Date Last Done Comments Pneumococcal Vaccine: Pediatrics (0 to 5 Years) and At-Risk Patients (6 to 64 Years) (1 of 2 - PCV) 01/21/1992 Hepatitis C Screening 01/21/2004 COVID-19 Vaccine (3 - season) 2023 11/27/2020, 10/30/2020 Influenza Vaccine (FLU shot) (#1) 2023 02/26/2023, 01/25/2020, 03/09/2019, Additional history exists Depression Screening 08/29/2024 08/30/2023 Diabetes Screening 08/29/2026 08/30/2023, 0 08/12/2021, 08/12/2021, Additional history exists PAP SMEAR-EVERY 5 YRS,AGES 21-100 10/15/2027 10/14/2022, 11/17/2019, 09/20/2017, Additional history exists DTap/Tdap Vaccines (9 - Td or Tdap) 07/06/2029 07/07/2019, 07/14/2016, 10/11/2006, Additional history exists Hepatitis B Vaccine Completed 11/13/1992, 08/22/1991, 07/04/1991 HPV (Gardasil) Vaccine Aged Out No lo nger eligible based on patient's age to complete this topic MENINGOCOCCAL (MENACTRA/MENVEO) Aged Out No longer eligible based on patient's age to complete this topic documented as of this encounter Medical Devices Not on filedocumented as of this encounter Advance Directives * Full Code (Latest Code Status on File) Date Activated Date Inactivated Comments 03/08/2019 9:32 PM 03/09/2019 10:50 PM This orde r reflects the patients wishes and were consensually agreed upon. Question Answer Comments Discussion of Advance Directives occurred with: Patient Care Teams Diagnostics Tech Relationship Specialty Start Date End Date Savannah Lee DO [address] [place] [address] PCP - General Family Medicine 08/30/23 documented as of this encounter
--- OUTSIDE RECORDS SUMMARY | 2024-02-05 17:10 | External Medical Summary ---
Author Name Unknown Address Unknown Organization K01:[facility] - [address] [place] [id number] Laboratory Report Ordering Provider Test Date Status FLAKITO GALVEZ 08/30/2023 10:56:27 Final Observation Date Value Abnormality Reference (Units ) Status MYCODE SPECIMEN-SST 08/30/2023 10:56:27 Freezing of extracted DNA, whole blood and/or serum. Final Performing Location [facility] - [address] [place] [address]
--- OUTSIDE RECORDS SUMMARY | 2024-02-05 17:10 | External Medical Summary ---
Author Name Unknown Address Unknown Organization K01:[facility] [place] [facility] [address] [facility] [address] Laboratory Report Ordering Provider Test Date Status TRISHA GOMEZ 12/02/2023 10:16:48 Final Observation Date Value Abnormality Reference (Units) Status Streptococcus pyogenes DNA [Presence] in Throat by ESTRELLITA with probe detection 12/02/2023 10:16:48 Negative. No Group A Streptococcus detected by PCR (amplified probe). Negative Final This test was developed and its performance characteristics determined by [facility]. It has not been cleared or approved by the FDA. The laboratory is regulated under CLIA as qualified to perform high- complexity testing. This test is used for clinical purposes. It should not be regarded as investigational or for research. Performing Location [facility] [place] [facility] [address] [facility] [address]
--- OUTSIDE RECORDS SUMMARY | 2024-02-05 17:10 | External Medical Summary ---
Author Name Unknown Address Unknown Organization [id number]:[facility] [place] [address] [place] [address] Laboratory Report Ordering Provider Test Date Status SEA MONTGOMERY 08/30/2023 10:56:27 Final Observation Date Value Abnormality Reference (Units ) Status WBC, Total 08/30/2023 10:56:27 6.90 4.00-10.80 (K/uL) Final RBC 08/30/2023 10:56:27 4.35 3.85-5.15 (M/uL) Final Hemoglobin 08/30/2023 10:56:27 13.0 12.0-15.3 (g/dL) Final HCT 08/30/2023 10:56:27 39.3 36.0-45.2 (%) Final MCV 08/30/2023 10:56:27 90.3 81.5-97.5 (fL) Final MCH 08/30/2023 10:56:27 29.9 27.0-34.0 (pg) Final MCHC 08/30/2023 10:56:27 33.1 32.0-36.0 (g/dL) Final RDW 08/30/2023 10:56:27 13.3 11.5-15.5 (%) Final Platelets 08/30/2023 10:56:27 392 140-400 (K/uL) Final MPV 08/30/2023 10:56:27 10.6 6.6-11.1 (fL) Final Nucleated erythrocytes/100 leukocytes [Ratio] in Blood by Automated count 08/30/2023 10:56:27 0 <=0 (/100 WBCs) Final Performing Location [facility] [place] [address] [place] [id number]
--- OUTSIDE RECORDS SUMMARY | 2024-02-05 17:10 | External Medical Summary | Summary of Care ---
Author Name Unknown Organization [facility] Address [address] [facility] [place] [address] Phone [phone] Care Team Providers Care Asset Protection Associate Name Role Phone AbelSavannah gardiner Primary Care Provider [phone] Reason for Visit * Reason Comments Acute Strep testDaughter j ust had strep and when she gets it it gets pretty bad, usually the rapid test is negative Sore throat started on Wednesday, no fever but does have headaches Encounter Details Date Type Department Care Team (Late st Contact Info) Description 01/27/2024 8:40 AM EDT Office Visit [facility] [address] [place] [address] Luca Johnson MD [address] [place] [address] Sore throat*; Strep throat exposure; Acute recurrent frontal sinusitis; Chronic rhinitis Allergies Active Allergy Reactions Criticality Noted Date [...] Fluocinolone Acetonide Scalp 0.01 % External Oil ([place]-Smoothe/FS Scalp) Apply to outer ears at night [...] [place] [facility] [place]/01/2019 10/05/2019 Overview: Blood products given [...] Passive Smoke Exposure: Past Smokeless Tobacco: Never Tobacco Cessation:Counseling Given: Not Answered Alcohol Use Standard Drinks/Week Comments No 0 [...] money to get more. Never true 09/21/2022 Gray Depression Scale Answer Date Recorded Gray Depression Scale Score 0 04/02/2020 The thought [...] on file documented as of this encounter Last Filed Vital Signs Vital Sign Reading Time Taken Comments Blood Pressure 104/68 01/27/2024 8:37 AM EDT Pulse 83 01/27/2024 8:37 AM EDT Temperature 36.5 C (97.7 F) 01/27/2024 8:37 AM ED T Respiratory Rate 16 01/27/2024 8:37 AM EDT Oxygen Saturation 99% 01/27/2024 8:37 AM EDT Inhaled Oxygen Concentration - - Weight 81.7 kg (180 lb 3.2 oz) 01/27/2024 8:37 A M EDT Height 160 cm (5' 3") 01/27/2024 8:37 AM EDT Body Mass Index 31.92 01/27/2024 8:37 AM EDT documented in this encounter Functional Status Functional Status Response [...] No 03/08/2019 documented as of this encounter Progress Notes * Luca Johnson MD - 01/27/2024 8:53 AM EDT Subjective Chary Lee is a 39 year old female. Chief Complaint Patient presents with Acute Strep test Daughter just had strep and when she gets it it gets pretty bad, usually the rapid test is negative Sore throat started on Wednesday, no fever but does have headaches HPI: Here for possible strep Her daughter had strep recently Pt denies fever, but has had sore throat , comes and goes Showing chronic sinusitis too Known allergy , didn't take any OTC recently Breathing is normal , good PMH: Patient Active Problem List Diagnosis Gastroesophageal reflux disease without esophagitis Obesity, Class I, BMI 30.0-34.9 (see actual BMI) Chronic rhinitis Current Outpatient Medications Medication Sig Dispense Refill ferrous sulfate (FEOSOL) 325 (65 FE) MG Tablet Take 1 Tablet by mouth daily with breakfast. Cholecalciferol (VITAMIN D-3) 25 MCG (1000 UT) Capsule Take 1 Cap by mouth daily. Albuterol Sulfate HFA 108 (90 Base) MCG/ACT Inhalation Aerosol Solution Inhale by mouth 2 Puffs every 6 hours as needed for Wheezing. 18 g 2 Vitamin B12 100 MCG Oral Tablet Take by mouth daily. Fluocinolone Acetonide Scalp 0.01 % External Oil ([place]-Smoothe/FS Scalp) Apply to outer ears at night 3 times a week. 118.28 mL 1 Fluticasone Propionate 50 MCG/ACT Nasal Suspension (Flonase) Administer 2 Sprays into each nostril in the morning. 48 g 3 LORazepam 1 MG Oral Tablet (Ativan) Take 1 Tablet by mouth every 6 hours as needed for Anxiety. Famotidine 20 MG Oral Tablet (Pepcid) Take 1 Tablet by mouth every night at bedtime. 90 Tablet 5 Escitalopram Oxalate 20 MG Oral Tablet (Lexapro) Take 1 Tablet by mouth in the morning. 90 Tablet 3 Drospirenone-Ethinyl Estradiol 3-0.02 MG Oral Tablet (NANCY) Take 1 Tablet by mouth in the morning. Can take active pills continuously. 84 Tablet 4 Omeprazole 40 MG Oral Capsule Delayed Release (PriLOSEC) TAKE 1 CAPSULE BY MOUTH ONCE DAILY 1 HOUR BEFORE THE FIRST MEAL OF THE DAY 90 Capsule 1 Amoxicillin-Pot Clavulanate 875-125 MG Oral Tablet (Augmentin) Take 1 Tablet by mouth in the morning and 1 Tablet before bedtime. Do all this for 7 days. 14 Tablet 0 Loratadine 10 MG Oral Capsule Take 1 Capsule by mouth in the morning. (Patient not taking: Reportedon 08/30/2023) Cetirizine HCl 10 MG Oral Tablet (ZyrTEC) Take 1 Tablet by mouth in the morning. (Patient not taking: Reported on 08/30/2023) No current facility-administered medications for this visit. 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 Varicella without complication Past Surgical History: Procedure Laterality Date DELIVERY COLPOSCOPY VAGINA/CERVIXW/BIOP 10/25/2009 [place], cryo, RAGHAVENDRA 2 DENTAL SURGERY PROCEDURE NEC wisdom teeth; no complications EGD, FLEXIBLE, DIAGNOSTIC 11/02/2022 small hiatal hernia/biopsies normal/ESOPHAGOGASTRODUODENOSCOPY (EGD), FLEXIBLE, TRANSORAL, DIAGNOSTIC performed by Debi Guerin MD at [facility] LIGATE/CUT OVIDUCT(S) Bilateral Review of patient's allergies indicates: Allergen Reactions Nitrofurantoin dizzy Pyridium [Phenazopyridine Hcl] Nausea/vomiting Family History Problem Relation Name Age of Onset Hyperlipidemia Mother Endocrine Disorder Mother osteopenia, ex-smoker/hypothyroidism Fibromyalgia Mother Other (Other) Mother planatar fascititis. 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 Tobacco Use Smoking status: Former Current packs/day: 0.00 Types: Cigarettes Quit date: 03/26/2008 Years since quittin.8 Passive exposure: Past Smokeless tobacco: Never Vaping Use Vaping status: Never Used Substance and Sexual Activity Alcohol use: No Drug use: No Sexual activity: Yes Partners: Male control/protection: Surgical Comment: BTL Other Topics Concern Not on file Social History Narrative Not on file Social Determinants of Health Financial Resource Strain: Not on file Food Insecurity: No Food Insecurity (09/21/2022) Hunger Vital Sign Worried About Running Out of Food in the Last Year: Never true Ran Out of Food in the Last Year: Never true Transportation Needs: Not on file Social Connections: Unknown (10/05/2023) Social Connections How often do you feel lonely or isolated from those around you? (Adult - for ages 18 years and over): Not on file Housing Stability: Not on file Review of Systems Constitutional: Positive for fatigue. Negative for activity change, appetite change, chills, diaphoresis, fever and unexpected weight change. HENT: Positive for congestion, postnasal drip, rhinorrhea, sore throat, tinnitus and voice change. Negative for ear pain. Respiratory: Negative for cough, chest tightness, shortness of breath and wheezing. Cardiovascular: Negative for chest pain, palpitations and leg swelling. Allergic/Immunologic: Positive for environmental allergies. Neurological: Positive for headaches. Psychiatric/Behavioral: Positive for sleep disturbance. Negative for agitation and behavioral problems. Objective BP 104/68 | Pulse 83 | Temp 36.5 C (97.7 F) | Resp 16 | Ht 1.6 m (5' 3") | Wt 81.7 kg (180 lb 3.2 oz) | LMP 12/03/2023 | SpO2 99% | No | BMI 31.92 kg/m | BSA 1.91 m Physical Exam Constitutional: General: She is not in acute distress. Appearance: Normal appearance. She is not ill-appearing, toxic-appearing or diaphoretic. HENT: Head: Normocephalic and atraumatic. Ears: Comments: Cloudy fluid TMs Nose: Congestion present. Eyes: Extraocular Movements: Extraocular movements intact. Cardiovascular: Rate and Rhythm: Normal rate and regular rhythm. Pulses: Normal pulses. Heart sounds: Normal heart sounds. No murmur heard. Pulmonary: Effort: Pulmonary effort is normal. No respiratory distress. Breath sounds: Normal breath sounds. No stridor. No wheezing, rhonchi or rales. Chest: Chest wall: No tenderness. Musculoskeletal: Right lower leg: No edema. Left lower leg: No edema. Neurological: Mental Status: She is alert and oriented to person, place, and time. Psychiatric: Behavior: Behavior normal. ASSESSMENT/PLAN: Sore throat (Primary) Strep throat exposure Acute recurrent frontal sinusitis Chronic rhinitis Other orders - Amoxicillin-Pot Clavulanate 875-125 MG Oral Tablet (Augmentin); Take 1 Tablet by mouth in the morning and 1 Tablet before bedtime. Do all this for 7 days. Resume xyzal and flonase Saline spray Augmentin Luca Johnson MD documented in this encounter Nursing Notes * Nicole Morgan LPN - 01/27/2024 8:42 AM EDT The patient has been properly identified by confirmation of name and date of . Chief Complaint Patient presents with Acute Strep test Daughter just had strep and when she gets it it gets pretty bad, usually the rapid test is negative Sore throat started on Wednesday, no fever but does have headaches documented in this encounter Plan of Treatment Upcoming Encounters Date Type Department Care Team (Late st Contact Info) Description 03/09/2024 11:50 AM EST Office Visit [facility] [address] [place] [facility] [place] [place] [address] Savannah Lee DO [address] [place] [address] Health Maintenance Due Date Last Done Comments [...] Not on filedocumented as of this encounter Visit Diagnoses Diagnosis Sore throat- Primary Acute pharyngitis Strep throat exposure Contact with or exposure to other communicable diseases Acute recurrent frontal sinusitis Acute frontal sinusitis Chronic rhinitis documented in this encounter Advance Directives * Full Code (Latest Code Status on File) Date Activated Date Inactivated Comments 03/08/2019 9:32 PM 03/09/2019 10:50 PM This orde r reflects the patients wishes and were consensually agreed upon. Question Answer Comments Discussion of Advance Directives occurred with: Patient Care Teams Asset Protection Associate Relationship Specialty Start Date End Date Savannah Lee DO [address] [facility] [place] [address] PCP - General Family Medicine 08/30/23 documented as of this encounter
--- OUTSIDE RECORDS SUMMARY | 2024-02-05 17:10 | External Medical Summary ---
Author Name Unknown Address Unknown Organization K01:[facility] - [address] [place] [address] Laboratory Report Ordering Provider Test Date Status VALENTINASEA 08/30/2023 10:56:27 Final Observation Date Value Abnormality Reference (Units ) Status Albumin 08/30/2023 10:56:27 4.4 3.8-5.0 (g/dL) Final AST (Aspartate aminotransferase) 08/30/2023 10:56:27 17 10-35 (U/L) Final Alk Phos 08/30/2023 10:56:27 59 35-130 (U/L) Final ALT (Alanine aminotransferase) 08/30/2023 10:56:27 26 10-35 (U/L) Final Bilirubin, Total 08/30/2023 10:56:27 0.2 <=1.2 (mg/dL) Final Bilirubin, Direct 08/30/2023 10:56:27 <0.2 0.0-0.3 (mg/dL) Final Protein 08/30/2023 10:56:27 7.4 6.0-8.3 (g/dL) Final Performing Location [facility] [place] [address] [place] [address]
--- OUTSIDE RECORDS SUMMARY | 2024-02-05 17:10 | External Medical Summary | Summary of Care ---
Author Name Unknown Organization [facility] Address [address] [facility] [place] [address] Phone [phone] Care Team Providers Care Fiber Optic Assembler Name Role Phone Savannah Lee DO Primary Care Provider [phone] Reason for Visit * Reason Comments Physical-Exam NEW PATIENT Pt here to wanda a PCP and needs a yearly physical and med refill Encounter Details Date Type Department Care Team (Latest Contact Info) Description 08/30/2023 10:10 AM EDT Office Visit [place] [address] [place] [address] Savannah Lee DO [address] [place] [address] Gastroesophageal reflux disease without esophagitis*; PMS (premenstrual syndrome); RUQ pain; Leukocytosis, unspecified type Allergies Active Allergy Reactions Criticality Noted Date Comments Nitrofurantoin 04/02/2004 dizzy Phenazopyridine Hcl Nausea/vomiting 03/25/2012 documented as of this encounter (statuses as of 08/30/2023) Medications Medication Sig Dispensed Refills Start Date End Date Status ferrous sulfate (FEOSOL) 325 (65 FE) MG Tablet Take 1 Tablet by mouth daily with breakfast. 0 Active Cholecalciferol (VITAMIN D-3) 25 MCG (1000 UT) Capsule Take 1 Cap by mouth daily. 0 04/14/2019 Active Loratadine 10 MG Oral Capsule Take 1 Capsule by mouth in the morning. 0 Active Cetirizine HCl 10 MG Oral Tablet (ZyrTEC) Take 1 Tablet by mouth in the morning. 0 Active Albuterol Sulfate HFA 108 (90 Base) MCG/ACT Inhalation Aerosol SolutionIndicatio ns:Bronchitis, complicated,Bronc hospasm, exercise-induced Inhale by mouth 2 Puffs every 6 hours as needed for Wheezing. 18 g 2 09/17/2021 Active Vitamin B12 100 MCG Oral Tablet Take by mouth daily. 0 Active Fluocinolone Acetonide Scalp 0.01 % External Oil ([place]-Smoothe/FS Scalp) Apply to outer ears at night 3 times a week. 118.28 mL 1 12/29/2022 Active Fluticasone Propionate 50 MCG/ACT Nasal Suspension (Flonase) Administer 2 Sprays into each nostril in the morning. 48 g 3 04/20/2023 Active Escitalopram Oxalate 10 MG Oral Tablet (Lexapro)Indicati ons:SHANEKA (generalized anxiety disorder) Take 1 Tablet by mouth in the morning. 90 Tablet 1 06/05/2023 Active LORazepam 1 MG Oral Tablet (Ativan) Take 1 Tablet by mouth every 6 hours as needed for Anxiety. 0 06/26/2022 Active Famotidine 20 MG Oral Tablet (Pepcid)Indicatio ns:Gastroesophage al reflux disease without esophagitis Take 1 Tablet by mouth every night at bedtime. 90 Tablet 5 08/30/2023 Active Escitalopram Oxalate 20 MG Oral Tablet (Lexapro) Take 1 Tablet by mouth in the morning. 90 Tablet 3 08/30/2023 Active Drospirenone-Ethi nyl Estradiol 3-0.02 MG Oral Tablet (NANCY)Indications: PMS (premenstrual syndrome) Take 1 Tablet by mouth in the morning. Can take active pills continuously. 84 Tablet 4 08/30/2023 Active Omeprazole 40 MG Oral Capsule Delayed Release (PriLOSEC)Indicat ions:Gastroesopha geal reflux disease without esophagitis TAKE 1 CAPSULE BY MOUTH ONCE DAILY 1 HOUR BEFORE THE FIRST MEAL OF THE DAY 90 Capsule 1 08/30/2023 Active Drospirenone-Ethi nyl Estradiol 3-0.02 MG Oral Tablet (NANCY)Indications: PMS (premenstrual syndrome) Take 1 Tablet by mouth in the morning. Can take active pills continuously. 84 Tablet 4 10/14/2022 4 Discontinue d(Refill) Omeprazole 40 MG Oral Capsule Delayed Release (PriLOSEC)Indicat ions:Gastroesopha geal reflux disease without esophagitis TAKE 1 CAPSULE BY MOUTH ONCE DAILY 1 HOUR BEFORE THE FIRST MEAL OF THE DAY 90 Capsule 1 06/05/2023 4 Discontinue d(Refill) documented as of this encounter (statuses as of 08/30/2023) Active Problems Problem Noted Date Diagnosed Date Obesity, Class I, BMI 30.0-34.9 (see actual BMI) 08/12/2021 Gastroesophageal reflux disease without esophagi tis 03/08/2019 documented as of this encounter (statuses as of 08/30/2023) Resolved Problems Problem Noted Date Diagnosed Date [...] and trigger point injections with urogyn at [facility] INFORMATION 03/01/2019 10/05/2019 Overview: Blood products given with first delivery due to vaginal wall laceration Supervision of other normal 02/17/2019 10/05/2019 Overview: 07/07/2019 administered TDAP. Roma Bautista LPN Well adult exam 02/22/2018 06/02/2022 Overview: Pap 2018 & HPV neg. , 2016, 2015 WNL ADVANCE DIRECTIVE INFORMATION 02/15/2017 03/14/2019 Overview: none , normal first 01/16/2016 07/0 08/2016 Overview: Patient given flu vaccine. 03/09/2016 Alma Rosa Hoover, [place] 07/14/2016 Tdap Vaccine administered per clinic protocol. [...] as of this encounter (statuses as of 08/30/2023) Immunizations Name Administration Dates Next Due COVID-19 mRNA, LNP-s, No Pre serve, 2-Dose Series (Moderna) 11/27/2020,10/30/2020 Seasonal Influenza, PF, 6 M & above, IM , (FluLaval or Fluzone) 02/26/2023,01/25/2020,03/09/2019, 0 17 Seasonal Influenza, Quadriva lent, No Preserve, IM 03/09/2016 Seasonal Influenza, Split, I IV3, With Preserve, Inj 02/03/2013 TDAP (age 10 and older)(Boostrix) 07/07/2019, TDAP (age 11 and older)(Adacel) 10/11/2006 documented as of this encounter Social [...] money to get more. Never true 09/21/2022 [place] Depression Scale Answer Date Recorded [place] Depression Scale Score 0 04/02/2020 The thought of harming myself has occurred to me . (Pt Reported) 04/02/2020 Sex and Gender Information Value Date Recorded Sex Assigned at Female 06/29/2019 4:08 PM EDT Gender Identity Female 06/29/2019 4:08 PM EDT Sexual Orientation Straight 06/29/2019 4: 08 PM EDT Job Start Date Occupation Industry Not on file Not on file Not on file documented as of this encounter Last Filed Vital Signs Vital Sign Reading Time Taken Comments Blood Pressure 120/68 08/30/2023 10:09 AM EDT Pulse 76 08/30/2023 10:09 AM EDT Temperature 36.4 C (97.5 F) 08/30/2023 10:09 AM E DT Respiratory Rate 16 08/30/2023 10:09 AM EDT Oxygen Saturation 99% 08/30/2023 10:09 AM EDT Inhaled Oxygen Concentration - - Weight 79.5 kg (175 lb 4.8 oz) 08/30/2023 10:09 AM EDT Height 160 cm (5' 3") 08/30/2023 10:09 AM EDT Body Mass Index 31.05 08/30/2023 10:09 AM EDT documented in this encounter Functional [...] as of this encounter Progress Notes * Savannah Lee, - 08/30/2023 10:21 AM EDT Subjective: Chary Lee is a 38 year old female. Chief Complaint Patient presents with Physical-Exam NEW PATIENT Pt here to reestablish a PCP and needs a yearly physical and med refill HPI: 38 year old female for new patient although she was arranged for an acute visit for right sided chest pain associated with GERD and anxiety. Ongoing anxiety, is on 10 mg lexapro and helped anxiety but having diarrhea since the medication. Over 1 year. Having chest pains on the R side. Pain when moving around. Having some panic attacks and taking lorazepam Stress with tax season. Had EGD done about 1 year ago and showed hiatal hernia. Had nerve testing on the R side, due to numbness and EMG showed pinched nerve in her neck. Saw Chiropractor. And doing exercises that help that. Drinks up to 6 cans of pepsi per day. She has tried to stop in the past and gets headaches. Takes the omeprazole 40 mg in the am. PHM: Patient Active Problem List Diagnosis Code Gastroesophageal reflux disease without esophagitis K21.9 Obesity, Class I, BMI 30.0-34.9 (see actual BMI) E66.9 Current Outpatient Medications Medication Sig Dispense Refill ferrous sulfate (FEOSOL) 325 (65 FE) MG Tablet Take 1 Tablet by mouth daily with breakfast. Cholecalciferol (VITAMIN D-3) 25 MCG (1000 UT) Capsule Take 1 Cap by mouth daily. Albuterol Sulfate HFA 108 (90 Base) MCG/ACT Inhalation Aerosol Solution Inhale by mouth 2 Puffs every 6 hours as needed for Wheezing. 18 g 2 Drospirenone-Ethinyl Estradiol 3-0.02 MG Oral Tablet (NANCY) Take 1 Tablet by mouth in the morning. Can take active pills continuously. 84 Tablet 4 Vitamin B12 100 MCG Oral Tablet Take by mouth daily. Fluocinolone Acetonide Scalp 0.01 % External Oil ([place]-Smoothe/FS Scalp) Apply to outer ears at night 3 times a week. 118.28 mL 1 Fluticasone Propionate 50 MCG/ACT Nasal Suspension (Flonase) Administer 2 Sprays into each nostril in the morning. 48 g 3 Omeprazole 40 MG Oral Capsule Delayed Release (PriLOSEC) TAKE 1 CAPSULE BY MOUTH ONCE DAILY 1 HOUR BEFORE THE FIRST MEAL OF THE DAY 90 Capsule 1 Escitalopram Oxalate 10 MG Oral Tablet (Lexapro) Take 1 Tablet by mouth in the morning. 90 Tablet 1 LORazepam 1 MG Oral Tablet (Ativan) Take 1 Tablet by mouth every 6 hours as needed for Anxiety. Loratadine 10 MG Oral Capsule Take 1 Capsule by mouth in the morning. (Patient not taking: Reportedon 08/30/2023) Cetirizine HCl 10 MG Oral Tablet (ZyrTEC) Take 1 Tablet by mouth in the morning. (Patient not taking: Reported on 08/30/2023) No current facility-administered medications for this visit. Review of patient's allergies indicates: Allergen Reactions Nitrofurantoin dizzy Pyridium [Phenazopyridine Hcl] Nausea/vomiting Objective: BP 120/68 | Pulse 76 | Temp 36.4 C (97.5 F) (Infrared ) | Resp 16 | Ht 1.6 m (5' 3") | Wt 79.5 kg (175 lb 4.8 oz) | SpO2 99% | BMI 31.05 kg/m | BSA 1.88 m Physical Exam: General: alert, healthy, and no distress Heart: regular rate & rhythm, no murmur, and no gallops Lungs: chest symmetric with normal AP diameter, no chest deformities noted, no chest wall tenderness, lungs clear to auscultation Abdomen: abdomen soft, non-tender, normal bowel sounds, and no masses or organomegaly ASSESSMENT/PLAN: Gastroesophageal reflux disease without esophagitis (Primary) - Famotidine 20 MG Oral Tablet (Pepcid); Take 1 Tablet by mouth every night at bedtime. - Omeprazole 40 MG Oral Capsule Delayed Release (PriLOSEC); TAKE 1 CAPSULE BY MOUTH ONCE DAILY 1 HOUR BEFORE THE FIRST MEAL OF THE DAY Lower pepsi to 3 per day in am, and eventually will try weaning her off the pepsi. To take the pepcid at night. PMS (premenstrual syndrome) - Drospirenone-Ethinyl Estradiol 3-0.02 MG Oral Tablet (NANCY); Take 1 Tablet by mouth in the morning. Can take active pills continuously. RUQ pain - US ABDOMEN LIMITED; Future; Expected date: 08/30/2023 - BASIC METABOLIC PANEL; Future; Expected date: 08/30/2023 - HEPATIC FUNCTION PANEL; Future; Expected date: 08/30/2023 Leukocytosis, unspecified type - CBC; Future; Expected date: 08/30/2023 Other orders - Escitalopram Oxalate 20 MG Oral Tablet (Lexapro); Take 1 Tablet by mouth in the morning. Increase to 20 mg Follow Up: Return in about 6 months (around 03/01/2024) for Labs Today. | For: Labs Today | Check-out note: RUQ US. Savannah Lee DO documented in this encounter Nursing Notes * Suzi Dooley LPN - 08/30/2023 10:04 AM EDT Chief Complaint Patient presents with Physical-Exam NEW PATIENT Pt here to reestablish a PCP and needs a yearly physical and med refill documented in this encounter Plan of Treatment Upcoming Encounters Date Type Department Care Team (Late st Contact Info) Description 09/07/2023 8:15 AM EDT Imaging [facility], [address] [place] [address] 2024 9:30 AM EDT Office Visit Allergy/Immunology [facility] [place] [address] [place] [address] Karen Merrill PA-C [address] [place] [address] 03/09/2024 11:50 AM EST [facility] [place] [address] [facility] [address] Savannah [facility] [address] [facility] [address] Pending Results Name Type Priority Associated Diagnoses Date /Time CBC Lab Routine Leukocytosis, unspecified type 08/30/2023 10:56 AM EDT BASIC METABOLIC PANEL Lab Routine RUQ pain 08/30/2023 10:56 AM EDT HEPATIC FUNCTION PANEL Lab Routine RUQ pain 08/30/2023 10:56 AM EDT Scheduled Orders Name Type Priority Associated Diagnoses Orde r Schedule US ABDOMEN LIMITED Medical Imaging Routine RUQ pain Expected: 08/30/2023, Expires: 09/29/2024 CBC Lab Routine Leukocytosis, unspecified type Expected: 08/30/2023 (Approximate), Expires: 08/29/2024 BASIC METABOLIC PANEL Lab Routine RUQ pain Expected: 08/30/2023 (Approximate), Expires: 08/29/2024 HEPATIC FUNCTION PANEL Lab Routine RUQ pain Expected: 08/30/2023 (Approximate), Expires: 08/29/2024 Health Maintenance Due Date Last Done Comments Pneumococcal Vaccine: Pediatrics (0 to 5 Years) and At-Risk Patients (6 to 64 Years) (1 of 2 - PCV) 01/21/1992 Hepatitis C Screening 01/21/2004 COVID-19 Vaccine (3 - 2022- season) 2022 11/27/2020, 10/30/2020 Diabetes Screening 08/12/2024 08/12/2021, 0 08/12/2021, 03/09/2019, Additional history exists Depression Screening 08/29/2024 08/30/2023 PAP SMEAR-EVERY 5 YRS,AGES 21-100 10/15/2027 10/14/2022, 11/17/2019, 09/20/2017, Additional history exists DTaP,Tdap,and Td Vaccines (9 - Td or Tdap) 07/06/2029 07/07/2019, 07/14/2016, 10/11/2006, Additional history exists Hepatitis B Completed 11/13/1992, 08/1991, 07/04/1991 Influenza Vaccine (FLU shot) Completed 01/2023, 01/25/2020, 03/09/2019, Additional history exists GARDASIL-HPV IMMUNIZATION SERIES Aged Out No longer eligible based on patient's age to complete this topic MENINGOCOCCAL (MENACTRA/MENVEO) Aged Out No longer eligible based on patient's age to complete this topic documented as of this encounter Medical Devices Not on filedocumented as of this encounter Visit Diagnoses Diagnosis Gastroesophageal reflux disease without esophagitis- Primary Esophageal reflux PMS (premenstrual syndrome) Premenstrual tension syndromes RUQ pain Abdominal pain, right upper quadrant Leukocytosis, unspecified type documented in this encounter Advance Directives Latest Code Status on File Code Status Date Activated Date Inactivated Comments Full Code 03/08/2019 9:32 PM 03/09/2019 10:50 PM Th is order reflects the patients wishes and were consensually agreed upon. Question Answer Comments Discussion of Advance Directives occurred with: Patient Care Teams Fiber Optic Assembler Relationship Specialty Start Date End Date Savannah Lee DO [address] [place] [facility] [place] [address] PCP - General Family Medicine 08/30/23 documented as of this encounter
--- OUTSIDE RECORDS SUMMARY | 2024-02-05 17:10 | External Medical Summary | Summary of Care ---
Author Name Unknown Organization [facility] Address [address] [place] [facility] [facility] [place] [address] Phone [phone] Care Team Providers Care Asbestos Coverer Name Role Phone Savannah Lee Primary Care Provider Reason for Visit * Reason Comments Acute Sore throat, tired-s ymptoms started yesterday, daughter has strep Encounter Details Date Type Department Care Team (Late st Contact Info) Description 12/02/2023 10:00 AM EDT [facility] [address] [facility] [address] Bisi Mckeon MD [address] [facility] [place] [address] Sore throat (viral)* Allergies Active Allergy Reactions Criticality Noted Date Comments Nitrofurantoin 04/02/2004 dizzy Phenazopyridine Hcl Nausea/vomiting 03/25/2012 documented as of this encounter (statuses as of 12/02/2023) Medications Medication Sig Dispensed Refills Start Date [...] Fluocinolone Acetonide Scalp 0.01 % External Oil ([place]-Smoothe/FS Scalp) Apply to outer ears at night [...] THE DAY 90 Capsule 1 08/30/2023 Active Escitalopram Oxalate 10 MG Oral Tablet (Lexapro)Indicati ons:SHANEKA (generalized anxiety disorder) Take 1 Tablet by mouth in the morning. 90 Tablet 1 06/05/2023 4 Discontinued documented as of this encounter (statuses as of 12/02/2023) Active Problems Problem Noted Date Diagnosed Date Obesity, Class I, BMI 30.0-34.9 (see actual BMI) 08/12/2021 Gastroesophageal reflux disease without esophagi tis 03/08/2019 documented as of this encounter (statuses as of 12/02/2023) Resolved Problems Problem Noted Date Diagnosed Date [...] and trigger point injections with urogyn at [facility] INFORMATION 03/01/2019 10/05/2019 Overview: Blood products given [...] as of this encounter (statuses as of 12/02/2023) Immunizations Name Administration Dates Next Due COVID-19 mRNA, LNP-s, No Pre serve, 2-Dose Series (Moderna) 11/27/2020,10/30/2020 Seasonal Influenza, PF, 6 M & above, IM , (FluLaval or Fluzone) 02/26/2023,01/25/2020,03/09/2019, 0 17 Seasonal Influenza, Quadriva lent, No Preserve, IM 03/09/2016 Seasonal Influenza, Split, I IV3, With Preserve, Inj 02/03/2013 TDAP (age 10 and older)(Boostrix) 07/07/2019, TDAP, [...] money to get more. Never true 09/21/2022 [place] Depression Scale Answer Date Recorded [place] Depression Scale Score 0 04/02/2020 The thought [...] Sign Reading Time Taken Comments Blood Pressure 100/70 12/02/2023 10:03 AM EDT Pulse 88 12/02/2023 10:03 AM EDT Temperature 37 C (98.6 F) 12/02/2023 10:03 AM EDT Respiratory Rate 16 12/02/2023 10:03 AM EDT Oxygen Saturation - - Inhaled Oxygen Concentration - - Weight 79.8 kg (176 lb) 12/02/2023 10:03 AM EDT Height 160 cm (5' 3") 12/02/2023 10:03 AM EDT Body Mass Index 31.18 12/02/2023 10:03 AM EDT documented in this encounter Functional [...] as of this encounter Progress Notes * Bisi Mckeon MD - 12/02/2023 10:36 AM EDT Images from the original note were not included. History of Present Illness Chary Lee is a 38 year old female that presents for Acute (Sore throat, tired- symptoms started yesterday, daughter has strep ) Has sore throat, fatigue, no chest pain or cough or sob. No GERD s/s or sinus issues. No fever or chills but some fatigue. 4 year old daughter got diagnosed with strep yesterday. Physical Exam Vitals: 12/02/23 1003 Temp: 37 C (98.6 F) Pulse: 88 Resp: 16 BP: 100/70 BMI: 31.18 BP Readings from Last 3 Encounters: 12/02/23 100/70 08/30/23 120/68 07/21/23 106/72 Wt Readings from Last 3 Encounters: 12/02/23 79.8 kg (176 lb) 08/30/23 79.5 kg (175 lb 4.8 oz) 07/21/23 83.5 kg (184 lb 1.6 oz) BMI Readings from Last 3 Encounters: 12/02/23 31.18 kg/m 08/30/23 31.05 kg/m 07/21/23 31.60 kg/m Ht Readings from Last 3 Encounters: 12/02/23 1.6 m (5' 3") 08/30/23 1.6 m (5' 3") 04/20/23 1.626 m (5' 4") HEENT: PERRLA, EOMI, anicteric sclera, b/l tympanic membrane is pearly white, no erythema,RT tonsillar enlargement, no pharyngeal erythema, no lymphadenopathy, neck supple CVS: RRR, no murmurs, rubs or gallops, s1 s 2normal. RESP: clear to auscultation, no wheezing or crackles I have reviewed the following results: None Assessment and Plan Sore throat (viral) (Primary) - STREP A SCREEN, POINT OF CARE (ENTER/EDIT) - GROUP A STREP PCR Continue hydration, tylenol with advil , salt water gargle. Let us know if s/s gets worse. If throat culture positive, will start an antibiotic. Wrap-Up Time: I spent a total of 20-29 minutes (exact time 25 mins) on the date of service in preparation, delivery, and documentation of the care provided to Chary Lee excluding any time spent in the performance of separately billed services. documented in this encounter Nursing Notes * Gilma Currie LPN - 12/02/2023 10:03 AM EDT The patient has been properly identified by confirmation of name and date of . Chief Complaint Patient presents with Acute Sore throat, tired-symptoms started yesterday, daughter has strep documented in this encounter Plan of Treatment Upcoming Encounters Date Type Department Care Team (Late st Contact Info) Description 2024 9:30 AM EDT Office Visit Allergy/Immunology [facility] [address] [facility] [address] Karen Merrill PA-C [address] [facility] [address] 03/09/2024 11:50 AM EST Office Visit [place] [address] [place] [address] Savannah Lee DO [address], [place] [id number] Pending Results Name Type Priority Associated Diagnoses Date /Time GROUP A STREP PCR Lab Routine Sore throat (viral) 12/02/2023 10:16 AM EDT Health Maintenance Due Date Last Done Comments Pneumococcal Vaccine: Pediatrics (0 to 5 Years) and At-Risk Patients (6 to 64 Years) (1 of 2 - PCV) 01/21/1992 Hepatitis C Screening 01/21/2004 COVID-19 Vaccine (3 - 2022- season) 2022 11/27/2020, 10/30/2020 Influenza Vaccine (FLU shot) (#1) [...] Not on filedocumented as of this encounter Procedures Procedure Name Priority Date/Time Associated Diagnosis Comments STREP A SCREEN, POINT OF CARE (ENTER/EDIT) Routine 12/02/2023 Sore throat (viral) documented in this encounter Results * STREP A SCREEN, POINT OF CARE (ENTER/EDIT) (12/02/2023) Strep A Result Negative Negative Procedural Control Valid? Yes Lot Number [id number] Expiration Date 09/30/24 Swab Throat swab / Unknown 12/02/2023 Bisi Mckeon MD LAB POINT OF CAR E TEST ENTER/EDIT ORDERABLES documented in this encounter Visit Diagnoses Diagnosis Sore throat (viral)- Primary Acute pharyngitis documented in this encounter Advance Directives * Full Code (Latest Code Status on File) Date Activated Date Inactivated Comments 03/08/2019 9:32 PM 03/09/2019 10:50 PM This orde r reflects the patients wishes and were consensually agreed upon. Question Answer Comments Discussion of Advance Directives occurred with: Patient Care Teams Asbestos Coverer Relationship Specialty Start Date End Date Savannah Lee DO [address] [place] [address] PCP - General Family Medicine 08/30/23 documented as of this encounter
--- OUTSIDE RECORDS SUMMARY | 2024-02-05 17:10 | External Medical Summary ---
Author Name Unknown Address Unknown Organization [id number]:[facility] [place] [address] [place] [address] Laboratory Report Ordering Provider Test Date Status JUAN LUIS MONTGOMERYSteve 08/30/2023 10:56:27 Final Observation Date Value Abnormality Reference (Units ) Status BUN 08/30/2023 10:56:27 12 6-20 (mg/dL) Final Creatinine 08/30/2023 10:56:27 0.7 0.5-1.0 (mg/dL) Final Glomerular filtration rate/1.73 sq M.predicted [Volume Rate/Area] in Serum, Plasma or Blood by Creatinine-based formula (CKD-EPI) 08/30/2023 10:56:27 >90 >=60 (mL/min) Final eGFR is calculated based on the CKD-EPI 2020 equation Sodium 08/30/2023 10:56:27 137 135-146 (m mol/L) Final Potassium 08/30/2023 10:56:27 4.2 3.5-5.1 (m mol/L) Final Cl 08/30/2023 10:56:27 101 98-107 (mm ol/L) Final CO2 08/30/2023 10:56:27 25 22-32 (mmo l/L) Final Anion gap 08/30/2023 10:56:27 11 7-15 (mmol /L) Final Glucose 08/30/2023 10:56:27 82 70-120 (mg /dL) Final Calcium 08/30/2023 10:56:27 9.5 8.4-10.2 ( mg/dL) Final Performing Location [facility] [place] [address] [place] [address]
--- OUTSIDE RECORDS SUMMARY | 2024-02-05 17:10 | External Medical Summary | Summary of Care ---
Author Name Unknown Organization [facility] Address [address] [place] [address] Phone [phone] Care Team Providers Care Parts Washer Name Role Phone DonaldSavannah bazan Bebe DELGADILLO Primary Care Provider [phone] Reason for Visit * Reason Comments Outpatient Testing Encounter Details Date Type Department Care Team (Late st Contact Info) Description 08/30/2023 11:00 AM EDT Laboratory Laboratory, [place] [address] [place] [address] [facility] [address] [place] [address] [employer] Other*[id number]; Leukocytosis, unspecified type; RUQ pain Allergies Active Allergy Reactions Criticality Noted Date [...] HFA 108 (90 Base) MCG/ACT Inhalation Aerosol SolutionIndications :Bronchitis, complicated,Broncho spasm, exercise-induced Inhale by mouth 2 Puffs every 6 hours as needed for Wheezing. 18 g 2 09/17/2021 Active Vitamin B12 100 MCG Oral Tablet Take by mouth daily. 0 Active Fluocinolone Acetonide Scalp 0.01 % External Oil ([place]-Smoothe/FS Scalp) Apply to outer ears at night 3 times a week. 118.28 mL 1 12/29/2022 Active Fluticasone Propionate 50 MCG/ACT Nasal Suspension (Flonase) Administer 2 Sprays into each nostril in the morning. 48 g 3 04/20/2023 Active Escitalopram Oxalate 10 MG Oral Tablet (Lexapro)Indication s:SHANEKA (generalized anxiety disorder) Take 1 Tablet by mouth in the morning. 90 Tablet 1 06/05/2023 Active LORazepam 1 MG Oral Tablet (Ativan) Take 1 Tablet by mouth every 6 hours as needed for Anxiety. 0 06/26/2022 Active Famotidine 20 MG Oral Tablet (Pepcid)Indications :Gastroesophageal reflux disease without esophagitis Take 1 Tablet by mouth every night at bedtime. 90 Tablet 5 08/30/2023 Active Escitalopram Oxalate 20 MG Oral Tablet (Lexapro) Take 1 Tablet by mouth in the morning. 90 Tablet 3 08/30/2023 Active Drospirenone-Ethiny l Estradiol 3-0.02 MG Oral Tablet (NANCY)Indications:PM S (premenstrual syndrome) Take 1 Tablet by mouth in the morning. Can take active pills continuously. 84 Tablet 4 08/30/2023 Active Omeprazole 40 MG Oral Capsule Delayed Release (PriLOSEC)Indicatio ns:Gastroesophageal reflux disease without esophagitis TAKE 1 CAPSULE BY MOUTH ONCE DAILY 1 HOUR BEFORE THE FIRST MEAL OF THE DAY 90 Capsule 1 08/30/2023 Active documented as of this encounter (statuses [...] and trigger point injections with urogyn at [facility] INFORMATION 03/01/2019 10/05/2019 Overview: Blood products given [...] money to get more. Never true 09/21/2022 [place] Depression Scale Answer Date Recorded [place] Depression Scale Score 0 04/02/2020 The thought [...] No 03/08/2019 documented as of this encounter Plan of Treatment Upcoming Encounters Date Type Department Care Team (Late st Contact Info) Description 09/07/2023 8:15 AM EDT Imaging Radiology, [place] [address] [place] [address] 2024 9:30 AM EDT Office Visit Allergy/Immunology [facility] [address] [facility] [place] [address] Karen Merrill PA-C [address] [facility] [place] [address] 03/09/2024 11:50 AM EST Office Visit [facility] [address] [place] [address] Savannah Lee DO [address] [place] [address] Pending Results Name Type Priority Associated Diagnoses Date /Time MYCODE SUBSEQUENT ADULT Lab Routine [employer] Other*[id number] 08/30/2023 10:56 AM EDT CBC Lab Routine Leukocytosis, unspecified type 08/30/2023 10:56 AM EDT BASIC METABOLIC PANEL Lab Routine RUQ pain 08/30/2023 10:56 AM EDT HEPATIC FUNCTION PANEL Lab Routine RUQ pain 08/30/2023 10:56 AM EDT MYCODE SST1 Lab Routine [employer] Other*[id number] 08/30/2023 10:56 AM EDT MYCODE SST2 Lab Routine [employer] Other*[id number] 08/30/2023 10:56 AM EDT Health Maintenance Due Date Last Done Comments Pneumococcal Vaccine: Pediatrics (0 to 5 Years) and At-Risk Patients (6 to 64 Years) (1 of 2 - PCV) 01/21/1992 Hepatitis C Screening 01/21/2004 COVID-19 Vaccine (3 - 24 season) 2022 11/27/2020, 10/30/2020 Diabetes Screening 08/12/2024 [...] as of this encounter Visit Diagnoses Diagnosis [employer] Other*[id number] Leukocytosis, unspecified type RUQ pain Abdominal pain, right upper quadrant documented in this encounter Advance Directives Latest Code Status on File Code Status Date Activated Date Inactivated Comments Full Code 03/08/2019 9:32 PM 03/09/2019 10:50 PM Th is order reflects the patients wishes and were consensually agreed upon. Question Answer Comments Discussion of Advance Directives occurred with: Patient Care Teams Parts Washer Relationship Specialty Start Date End Date Savannha Lee DO [address] [place] [address] PCP - General Family Medicine 08/30/23 documented as of this encounter
--- NOTE | 2024-02-05 17:20 | Emergency Department Note ---
History of Present Illness General Chief complaint: Finger Pain Stated complaint: BIT BY GUINEA PIG,FINGER SWOLLEN Time Seen by Provider: 02/05/24 17:12 History of Present Illness Maximum Pain Intensity: 5 This is a sdmse-odna-prhxogbl, 39-year-old female that presents to the emergency department via private vehicle with complaints of "right finger swelling, bitten by guinea pig". The patient notes about 24 hours ago she was bitten on the right index finger by guinea pig. She is right-hand dominant. She points to the DIP joint as a location of the bite both on the ventral and dorsal aspect near the flexor and extensor crease. She denies any fevers, chills or systemic symptoms. She notes she is otherwise healthy. No pertinent past medical history or surgeries pertinent today's visit. She notes allergy to some UTI meds. Although penicillin and similar are listed as allergies she notes that is incorrect and she can take penicillins Home Medications Medication Instructions Recorded Confirmed Type ferrous sulfate 325 mg (65 mg 325 mg PO QAM 02/23/19 02/05/24 History iron) tablet omeprazole 40 mg capsule,delayed 40 mg PO QAM 02/23/19 02/05/24 History release cholecalciferol (vitamin D3) 125 5,000 unit PO QAM 03/08/19 02/05/24 History mcg (5,000 unit) tablet (Vitamin D3) doxylamine succinate 25 mg tablet 25 mg PO HS PRN Insomnia 09/18/19 02/05/24 History (Unisom (doxylamine)) drospirenone 3 mg-ethinyl 1 tab PO QAM 08/10/23 02/05/24 History estradiol 0.02 mg tablet acetaminophen 500 mg tablet 1,000 mg PO Q4 PRN Pain 02/05/24 02/05/24 History (Tylenol Extra Strength) escitalopram oxalate 20 mg tablet 20 mg PO QAM 02/05/24 02/05/24 History ibuprofen 200 mg tablet 400 mg PO Q4 PRN Pain 02/05/24 02/05/24 History Allergies Allergy/AdvReac Type Severity Reaction Status Date / Time nitrofurantoin Allergy Severe Vomiting Unverified 08/10/23 12:12 [From Macrobid] amoxicillin AdvReac Mild Gastrointestinal Verified 08/10/23 12:12 Upset clavulanic acid AdvReac Mild Gastrointestinal Verified 08/10/23 12:12 Upset Penicillins AdvReac Mild Gastrointestinal Verified 08/10/23 12:12 Upset phenazopyridine AdvReac Mild Gastrointestinal Verified 08/10/23 12:12 Upset Past Med/Surg History Problem List (Updated 02/06/24 @ 02:44 by Roberto Rubio PA-C) Cellulitis of finger of right hand (Acute) Animal bite of finger (Acute) Encounter for pre-operative examination Post-term with 40-42 completed weeks of gestation Iron deficiency Medical History (Updated 02/06/24 @ 02:44 by Roberto Rubio PA-C) RAGHAVENDRA II (cervical intraepithelial neoplasia II) 2010 History of blood transfusion 3RD DEGREE TEAR AFTER 1ST DELIVERY> SEP 12 2016 Slow to wake up after anesthesia Fallen bladder GERD (gastroesophageal reflux disease) Kidney stone PASSED Asthma WELL CONTROLLED> RARE INH USE Surgical History H/O colposcopy with cervical biopsy 2011 History of tooth extraction WISDOM No pertinent past surgical history Family History Other Cancer Social History Smoking Status: Former smoker Second Hand Exposure: No; Do You Dip or Chew Tobacco: No; Hx Alcohol Use: Yes Alcohol type: wine Hx Substance Use: No Preferred Language: Uzbek Communication Ability: Effective Chief Mate Required: No Beliefs That Will Affect Care: None marital status: Current Living Situation: Spouse and Family Current Living Situation Comment: Lives with and 3 y/o son Other Information That Helps Us Care for You: No Feels Safe at Home: Yes Safety Concerns: Feels Safe At This Time Assistive Devices: None Review of Systems A total of 10 systems reviewed and were otherwise negative Physical Exam Vital Signs Vital Signs - 24 hr 02/05/24 17:08 02/05/24 18:18 Temperature 36.8 C Temperature Source Temporal Artery Scan Pulse Rate 85 Pulse Rate [Finger] 71 Respiratory Rate 16 17 Respiratory Effort / Characteristics Non-Labored Spontaneous Non-Labored Spontaneous Respiratory Depth Normal Normal Respiratory Pattern Regular Blood Pressure 119/80 Blood Pressure [Right Arm] 116/82 Blood Pressure Mean 93 Blood Pressure Mean [Right Arm] 93 Blood Pressure Position Sitting Pulse Oximetry 98 99 Oxygen Delivery Method Room Air Room Air Sepsis Recent Fever Within 48 Hours No Sepsis New/Unexplained Change in Mental Status N/A Sepsis Action Taken by Nursing No Action Required VITAL SIGNS - Vital signs and nursing notes were reviewed. Stable and afebrile. GENERAL - 39-year-old female appearing he stated age who is in no acute distress. Communicates well with provider and answers questions appropriately. SKIN -fusiform/augmentable edema to the right second digit with associated erythema. No fluctuance. HEAD - NC/AT. LUNGS - CTA CARDIAC - RRR EXTREMITIES - No clubbing or peripheral cyanosis. Patient cannot flex at the right second DIP joint and minimally at the PIP joint. She is able to mildly extend at both DIP and PIP. Skin as above. +5/5 strength noted in UE/LE bilaterally. Capillary refill within normal limits. No laceration to repair at this time. NEUROLOGIC - R 2nd digit WNL in regard to NV status. PSYCH -alert, oriented and pleasant on exam Course Administered Medications Hydrocodone Bitart/Acetaminophen (Hydrocodone/Acetamophen 5/325mg Tab) 1 tab PO Q4H PRN PRN Reason: Severe Pain (Scale 7, 8, 9,10) Stop: 02/19/24 19:53 Last Admin: 02/05/24 23:25 Dose: 1 tab Documented By: ALBERTO Doxycycline Hyclate (Doxycycline Hyclate 100 Mg Cap) 100 mg PO BID [facility] Stop: 02/12/24 20:59 Last Admin: 02/05/24 20:24 Dose: 100 mg Documented By: ALBERTO Fluticasone Propionate (Fluticasone Propionate Na Spr 16 Gm Btl) 2 sprays NA BID [facility] Stop: 03/06/24 20:59 Last Admin: 02/05/24 20:24 Dose: 2 sprays Documented By: ALBERTO Ampicillin Sodium/Sulbactam Sodium (Unasyn) 3,000 mg in 100 mls @ 200 mls/hr IV Q6H [facility] Stop: 02/13/24 00:00 Last Infusion: 02/05/24 23:57 Dose: Infused Documented By: Admin: 02/05/24 23:21 Dose: 200 mls/hr Documented By: ALBERTO Sodium Chloride (Nss) 1,000 mls @ 125 mls/hr IV .Q8H [facility] Stop: 02/06/24 04:14 Last Admin: 02/05/24 20:24 Dose: 125 mls/hr Documented By: TKB Ketorolac Tromethamine (Ketorolac Tromethamine 15 Mg/Ml Vial) 15 mg IV Q6H PRN PRN Reason: Pain & Pre PT Stop: 02/10/24 19:53 Last Admin: 02/05/24 21:36 Dose: 15 mg Documented By: TKB Lactobacillus Acidophilus (Advanced Probiotic 625 Mg Capsule) 1,250 mg PO DAILY NELLIE Stop: 03/06/24 19:53 Last Admin: 02/05/24 21:29 Dose: 1,250 mg Documented By: TKB Discontinued Medications Ampicillin Sodium/Sulbactam Sodium (Unasyn) 3,000 mg in 100 mls @ 200 mls/hr IV NOW STA Stop: 02/05/24 17:50 Last Infusion: 02/05/24 19:21 Dose: Infused Documented By: Admin: 02/05/24 18:50 Dose: 200 mls/hr Documented By: JOEY Ioversol (Optiray 320 100ml) 94 ml IV ONCE ONE Stop: 02/05/24 19:20 Last Admin: 02/05/24 19:19 Dose: 94 ml Documented By: DENIZ Medical Decision Making Laboratory Data 02/05/24 17:33 02/05/24 17:33 Lab Results 02/05/24 Range/Units 17:33 WBC 10.65 (4.8-10.8) K/ul RBC 4.04 L (4.20-5.40) M/uL Hgb 12.0 (12.0-16.0) g/dl Hct 36.3 L (37.0-47.0) % MCV 89.9 (80.0-100.0) fL MCH 29.7 (25.0-34.0) pg MCHC 33.1 (32.0-36.0) g/dL RDW Std Deviation 42.1 (36.4-46.3) fL RDW Coeff of Ambreen 12.8 (11.5-14.5) % Plt Count 347 (130-400) K/uL MPV 9.4 (9.4-12.4) fL Immature Gran % (Auto) 0.5 % Neut % (Auto) 56.3 % Lymph % (Auto) 34.3 % [place] % (Auto) 7.7 % Eos % (Auto) 0.9 % Baso % (Auto) 0.3 % Neut # (Auto) 6.00 (1.40-6.50) K/uL Lymph # (Auto) 3.65 H (1.20-3.40) K/uL [place] # (Auto) 0.82 H (0.11-0.59) K/uL Eos # (Auto) 0.10 (0.00-0.50) K/uL Baso # (Auto) 0.03 (0.00-0.20) K/uL Immature Gran # (Auto) 0.05 (0.01-0.20) K/uL Sodium 138 (136-145) mmol/L Potassium 3.7 (3.5-5.1) mmol/L Chloride 108 H (98-107) mmol/L Carbon Dioxide 24 (21-32) mmol/L Anion Gap 6 (3-11) BUN 14 (6-23) mg/dl Creatinine 0.73 (0.6-1.2) mg/dl Est Cr Clr Drug Dosing 110.3 ml/min eGFR 107.89 BUN/Creatinine Ratio 19.2 (10-20) Glucose 97 (70-99(Fasting)) mg/dl Calcium 9.2 (8.6-10.3) mg/dl Total Bilirubin 0.2 (0.2-1.0) mg/dl AST 13 (13-39) U/L ALT 17 (7-52) U/L Alkaline Phosphatase 59 (34-104) U/L Total Protein 6.9 (6.0-8.3) gm/dl Albumin 3.9 (3.4-5.0) gm/dl Globulin 3.0 (2.5-4.0) gm/dl Albumin/Globulin Ratio 1.3 (0.9-2) HCG, Qual Negative (Negative) Imaging Data Radiologist's Impression: Finger X-Ray 02/05/24 17:20 XR finger(s) RT min 2V CLINICAL HISTORY: R index finger guinea pig bite, infection TECHNIQUE: 3 views of the right second digit were obtained. Comparison: None available at the time of this dictation. FINDINGS: There is no evidence of an acute fracture. Joint spaces are well-preserved. Soft tissue swelling is seen about the digit. IMPRESSION: Soft tissue swelling without evidence of underlying acute fracture. ACT 112: Negative or not required by law. Electronically signed by: Deuce Hudson M.D. 02/05/2024 6:46 PM MDM Narrative Patient was seen and evaluated as above in room B03. Review was performed of triage nursing notes and vital signs. Patient presents for evaluation of right second digit infection status post guinea pig bite that occurred yesterday. This is an indoor pet that has been acting appropriate and is still alive. No concern for rabies at this time. Patient notes tetanus vaccine is up-to-date. On assessment there is unfortunately a rather quickly developing infection to the right second digit. IV access was established. Labs were drawn. IV Unasyn was ordered for antibiotic coverage. X-ray was performed. Per my interpretation no obvious fracture or dislocation. Labs reveal no leukocytosis or concerning anemia. No emergent metabolic disturbance. hCG negative. I do believe that further evaluation and management in the inpatient setting is warranted. I discussed this with the hospitalist service, Dr. Rogers. I also discussed this with Dr. Kaye of orthopedics at 6:44 PM. We will proceed with IV antibiotics. No emergent surgical process at the present time however clinical course will be trended. In the evaluation and treatment of this patient the following differential diagnoses were entertained: Cellulitis, abscess, necrotizing fasciitis, flexor tenosynovitis, among others Impression & Plan Cellulitis of finger of right hand, Animal bite of finger Discharge Plan Visit Data Chief Complaint: Finger Pain Stated Complaint: BIT BY GUINEA PIG,FINGER SWOLLEN ED Provider: Morena Bustillos ED Midlevel Provider: Roberto Rubio Discharge Problem: Cellulitis of finger of right hand, Animal bite of finger Patient Disposition: Admitted As Inpatient Condition: Good Discharge Instructions Interventions: ED Discharge Assessment Last Done: 02/05/24 19:33
[2024-02-05 17:48] LABS: Basophils # (auto) 0.03 K/uL (0.00-0.20); Basophils % (auto) 0.3 %; Eosinophils % (auto) 0.9 %; Hematocrit (blood only) 36.3 % (37.0-47.0); Immature Granulocytes # (auto) 0.05 K/uL (0.01-0.20); Immature Granulocytes % (auto) 0.5 %; Lymphocytes # (auto) 3.65 K/uL (1.20-3.40); Lymphocytes % (auto) 34.3 %; Mean Corpuscular Hemoglobin 29.7 pg (25.0-34.0); Mean Corpuscular Hgb Conc 33.1 g/dL (32.0-36.0); Mean Corpuscular Volume 89.9 fL (80.0-100.0); Mean Platelet Volume 9.4 fL (9.4-12.4); Monocytes # (auto) 0.82 K/uL (0.11-0.59); Monocytes % (auto) 7.7 %; Neutrophils % (auto) 56.3 %; Platelet Count 347 K/uL (130-400); RDW Coefficient of Variation 12.8 % (11.5-14.5); RDW Standard Deviation 42.1 fL (36.4-46.3); Red Blood Count 4.04 M/uL (4.20-5.40); White Blood Count 10.65 K/ul (4.8-10.8)
[2024-02-05 18:01] LABS: Pregnancy Test, Serum Negative (Negative)
[2024-02-05 18:05] LABS: Albumin Globulin Ratio 1.3 (0.9-2); Albumin Level 3.9 gm/dl (3.4-5.0); BUN Creatinine Ratio 19.2 (10-20); Bilirubin,Total 0.2 mg/dl (0.2-1.0); Calcium 9.2 mg/dl (8.6-10.3); Creatinine Clr Calc Pharmacy 110.3 ml/min; Potassium 3.7 mmol/L (3.5-5.1); Total Protein 6.9 gm/dl (6.0-8.3)
--- NOTE | 2024-02-05 18:47 | XRay Report ---
XR finger(s) RT min 2V CLINICAL HISTORY: R index finger guinea pig bite, infection TECHNIQUE: 3 views of the right second digit were obtained. Comparison: None available at the time of this dictation. FINDINGS: There is no evidence of an acute fracture. Joint spaces are well-preserved. Soft tissue swelling is s een about the digit. IMPRESSION: Soft tissue swelling without evidence of underlying acute fracture. ACT 112: Negative or not required by law. Electronically signed by: Deuec Hudson M.D. 02/05/2024 6:46 PM
[2024-02-05] MEDS: AMPICILLIN/SULBACTAM SOD 3,000 MG/100 ML BAG IV STA (18:50)
--- NOTE | 2024-02-05 18:59 | History & Physical Report ---
Date of Service February 05, 2024 Assessment & Plan (1) Animal bite of finger: (2) Cellulitis of finger of right hand: Plan: 39-year-old female with history of GERD, rhinitis, etc. presenting with a guinea pig bite to the right index finger yesterday with progressive swelling and pain. Infected animal bite, cellulitis, right index finger Rule out abscess Right hand x-ray: No acute fracture CT hand with contrast ordered to rule out abscess IV Unasyn plus doxycycline IV NSS Toradol and [place] as needed for pain If patient has abscess on the right finger, or if the cellulitis does not show improvement, will consult orthopedic surgery History of GERD Continue famotidine and omeprazole Allergic rhinitis Continue Flonase, Zyrtec DVT prophylaxis SCDs for now History of Present Illness Chief Complaint: Right index finger progressive swelling and pain after a guinea pig bite yesterday Primary Care Provider: Savannah Lee, 39-year-old female with history of GERD, rhinitis, etc. presenting with a guinea pig bite to the right index finger yesterday with progressive swelling and pain. Patient was trying to separate her pet guinea pigs when one of them bit her hard on the distal right index finger. She tried to remove her finger but the guinea pig resisted and continued to latch on to her finger. She was able to eventually remove her finger from the bite, and noted significant bleeding from the wound site. She applied alcohol and bacitracin to the wound. However, she continued to have persistent throbbing pain over the wound site and noticed progressive swelling and redness of the right index finger since yesterday. Today she was unable to flex her right finger prompting consult to the ER. At the ER, patient received afebrile, with stable vital signs. X-ray of the finger showed: Soft tissue swelling without evidence of underlying acute fracture. She was started on IV Unasyn. On my exam, patient seen resting in bed, not in distress. Reports persistent throbbing pain over the right finger. No fevers or chills, nausea vomiting or any other symptoms. Allergies Allergy/AdvReac Type Severity Reaction Status Date / Time nitrofurantoin Allergy Severe Vomiting Unverified 08/10/23 12:12 [From Macrobid] amoxicillin AdvReac Mild Gastrointestinal Verified 08/10/23 12:12 Upset clavulanic acid AdvReac Mild Gastrointestinal Verified 08/10/23 12:12 Upset Penicillins AdvReac Mild Gastrointestinal Verified 08/10/23 12:12 Upset phenazopyridine AdvReac Mild Gastrointestinal Verified 08/10/23 12:12 Upset Home Medications Medication Instructions Recorded Confirmed Type ferrous sulfate 325 mg (65 mg 325 mg PO QAM 02/23/19 02/05/24 History iron) tablet omeprazole 40 mg capsule,delayed 40 mg PO QAM 02/23/19 02/05/24 History release cholecalciferol (vitamin D3) 125 5,000 unit PO QAM 03/08/19 02/05/24 History mcg (5,000 unit) tablet (Vitamin D3) doxylamine succinate 25 mg tablet 25 mg PO HS PRN Insomnia 09/18/19 02/05/24 History (Unisom (doxylamine)) drospirenone 3 mg-ethinyl 1 tab PO QAM 08/10/23 02/05/24 History estradiol 0.02 mg tablet acetaminophen 500 mg tablet 1,000 mg PO Q4 PRN Pain 02/05/24 02/05/24 History (Tylenol Extra Strength) escitalopram oxalate 20 mg tablet 20 mg PO QAM 02/05/24 02/05/24 History ibuprofen 200 mg tablet 400 mg PO Q4 PRN Pain 02/05/24 02/05/24 History Past Med/Surg History Problem List (Updated 02/05/24 @ 19:06 by Sid Rogers MD) Cellulitis of finger of right hand Animal bite of finger Encounter for pre-operative examination Post-term with 40-42 completed weeks of gestation Iron deficiency Medical History (Updated 02/05/24 @ 19:06 by Sid Rogers MD) RAGHAVENDRA II (cervical intraepithelial neoplasia II) 2010 History of blood transfusion 3RD DEGREE TEAR AFTER 1ST DELIVERY> SEP 12 2016 Slow to wake up after anesthesia Fallen bladder GERD (gastroesophageal reflux disease) Kidney stone PASSED Asthma WELL CONTROLLED> RARE INH USE Surgical History H/O colposcopy with cervical biopsy 2010 History of tooth extraction WISDOM No pertinent past surgical history Family History Other Cancer Social History Smoking Status: Former smoker Second Hand Exposure: No; Do You Dip or Chew Tobacco: No; Hx Alcohol Use: No Hx Substance Use: No Preferred Language: Arabic Communication Ability: Effective Tobacco Feeder Catcher Required: No Beliefs That Will Affect Care: None marital status: Current Living Situation: Spouse and Family Current Living Situation Comment: Lives with and 3 y/o son Feels Safe at Home: Yes Assistive Devices: Glasses Review of Systems Review of Systems: all noted and negative except for above Physical Exam Physical Exam: General- oriented x 3, not in distress, speaks in sentences with no effort or accessory muscle use Head- atraumatic Eyes- PERRL, EOMI, anicteric ENT- oropharynx clear Neck- supple, no JVD, no adenopathy, no thyromegaly; carotids +2/2, no bruits appreciated Lungs- clear to auscultation bilaterally, no rales/wheezes Heart- normal rate, regular rhythm; no murmur, no gallop, no rub appreciated Abdomen- normal bowel sounds, nondistended, soft, nontender, no masses or hepatosplenomegaly Extremities- no pretibial edema, no calf tenderness; peripheral pulses intact Right finger: Moderate edema of the entire right index finger, moderate erythema from mid to distal aspect, no warmth, minimal tenderness, Small scabbed linear wound on the ventral crease of the DIP joint Very limited range of motion due to swelling and pain Neuro- alert, oriented x 3; CN 2-12 grossly intact; motor 5/5 bilaterally;sensation 100% on all extremities; no other gross focal neurologic deficits Skin- warm & dry Results & Data Results & Data Vital Signs (Past 12 Hours) Vital Signs Temp Pulse Pulse Resp BP BP Pulse Ox 02/05/24 18:18 71 17 116/82 99 02/05/24 17:08 36.8 C 85 16 119/80 98 O2 Del Method 02/05/24 18:18 Room Air 02/05/24 17:08 Room Air all noted and reviewed including below Code Status & VTE Plan VTE Prophylaxis Plan VTE Prophylaxis will be ordered: Yes
[2024-02-05] MEDS ORDERED: LORazepam 0.5 MG TAB PO PRN (19:11)
[2024-02-05] MEDS: OPTIRAY 320 100ml IV ONE (19:19)
--- NOTE | 2024-02-05 19:30 | CT Scan Report ---
CT hand RT w con CLINICAL HISTORY: r finger infected animal bite, r/o abscess TECHNIQUE: Multidetector row helical CT of the right hand was performed with intravenous contrast. Co my and sagittal reformations were obtained. Automated dose lowering techniques and/or adjustment a ccording to patient size were utilized for this examination. CT DOSE: 430.7 mGy.cm Comparison: Right finger radiograph 02/05/2024 FINDINGS: The osseous structures are without fracture or dislocation. The joint spaces are maintained. No joint effusion is seen. Soft tissue swelling is seen about the second digit. IMPRESSION: Soft tissue swelling about the second digit without drainable fluid collection or evidence of underly ing osteomyelitis. ACT 112: Negative or not required by law. Electronically signed by: Deuce Hudson M.D. 02/05/2024 7:28 PM
[2024-02-05] MEDS ORDERED: PROMETHAZINE 12.5 MG/50.5 ML BAG IV PRN (19:54)
[2024-02-05] MEDS: FLUTICASONE PROPIONATE NA SPR 16 GM BTL SCH (20:24)
[2024-02-05] MEDS: DOXYCYCLINE HYCLATE 100 MG CAP PO SCH (20:24)
[2024-02-05] MEDS: SODIUM CHLORIDE 0.9% 1,000 ML IV SCH (20:24)
[2024-02-05] MEDS: ADVANCED PROBIOTIC 625 MG CAPSULE PO SCH (21:29)
[2024-02-05] MEDS: KETOROLAC TROMETHAMINE 15 MG/ML VIAL IV PRN (21:36)
[2024-02-05] MEDS: AMPICILLIN/SULBACTAM SOD 3,000 MG/100 ML BAG IV SCH (23:21)
[2024-02-05] MEDS: HYDROCODONE/ACETAMOPHEN 5/325MG TAB PO PRN (23:25)
[2024-02-06 06:26] LABS: Basophils # (auto) 0.03 K/uL (0.00-0.20); Basophils % (auto) 0.3 %; Eosinophils # (auto) 0.11 K/uL (0.00-0.50); Hematocrit (blood only) 33.6 % (37.0-47.0); Immature Granulocytes # (auto) 0.05 K/uL (0.01-0.20); Immature Granulocytes % (auto) 0.5 %; Lymphocytes # (auto) 4.24 K/uL (1.20-3.40); Lymphocytes % (auto) 40.2 %; Mean Corpuscular Hemoglobin 29.8 pg (25.0-34.0); Mean Corpuscular Hgb Conc 32.7 g/dL (32.0-36.0); Mean Corpuscular Volume 91.1 fL (80.0-100.0); Mean Platelet Volume 9.9 fL (9.4-12.4); Monocytes # (auto) 0.71 K/uL (0.11-0.59); Monocytes % (auto) 6.7 %; Neutrophils # (auto) 5.42 K/uL (1.40-6.50); Neutrophils % (auto) 51.3 %; Platelet Count 305 K/uL (130-400); RDW Coefficient of Variation 12.9 % (11.5-14.5); RDW Standard Deviation 42.5 fL (36.4-46.3); Red Blood Count 3.69 M/uL (4.20-5.40); White Blood Count 10.56 K/ul (4.8-10.8)
[2024-02-06 06:57] LABS: BUN Creatinine Ratio 20.6 (10-20); Calcium 8.2 mg/dl (8.6-10.3); Creatinine Clr Calc Pharmacy 127.8 ml/min; Potassium 4.1 mmol/L (3.5-5.1)
--- NOTE | 2024-02-06 08:11 | Hospitalist Progress Note ---
Date of Service February 06, 2024 Assessment & Plan (1) Animal bite of finger: (2) Cellulitis of finger of right hand: Plan: 39-year-old female with history of GERD, rhinitis, etc. presenting with a guinea pig bite to the right index finger yesterday with progressive swelling and pain. Infected animal bite, cellulitis, right index finger Rule out abscess Right hand x-ray: No acute fracture CT hand with contrast ordered to rule out abscess IV Unasyn plus doxycycline IV NSS Toradol and [place] as needed for pain If patient has abscess on the right finger, or if the cellulitis does not show improvement, will consult orthopedic surgery 02/05 CT hand: no abscess, fractures pain and edema progressed overnight will consult Ortho Tylenol 1 g q8, PRN Oxy continue IV Unasyn + Doxycycline History of GERD Continue famotidine and omeprazole Allergic rhinitis Continue Flonase, Zyrtec DVT prophylaxis SCDs for now Admission and Anticipated Discharge Date Admission Date: February 05, 2024 Subjective ff up for r index finger cellulitis, infected animal bite, etc seen resting in bed, not in distress reports increased persistent pain on the right index finger with some tingling sensation still has limited range of motion on the r index finger no fever/chills no other symptoms Review of Systems Review of Systems: all noted and negative except for above Physical Exam Physical Exam: General- oriented x 3, not in distress, speaks in sentences with no effort or accessory muscle use Eyes- anicteric Neck- no JVD Lungs- clear breath sounds bilaterally, no rales/wheezes Heart- normal rate, regular rhythm; no murmurs Abdomen- normal bowel sounds, nondistended, soft, nontender Extremities- no pretibial edema, no calf tenderness R index finger: moderate edema, mild erythema, scabbed linear wound DIP crease, no bleeding/discharge very limited range of motion due to pain Neuro- alert, oriented x 3; no gross focal neurologic deficits Skin- warm & dry Results & Data Results & Data Vital Signs (Past 12 Hours) Vital Signs Temp Pulse Resp BP Pulse Ox O2 Del Method 02/06/24 06:53 36.6 C 72 16 95/63 L 98 Room Air all noted and reviewed including below
[2024-02-06] MEDS: oxyCODONE HCL IR 5 MG TAB (IMMEDIATE RELEASE) PO PRN (08:49)
[2024-02-06] MEDS: PANTOprazole 40 MG TAB PO SCH (09:21)
[2024-02-06] MEDS: FERROUS SULFATE 325 MG TAB PO SCH (09:21)
[2024-02-06] MEDS: ESCITALOPRAM OXALATE 20 MG TAB PO SCH (09:21)
[2024-02-06] MEDS: CETIRIZINE ORAL SOLN 1 MG/ML PO SCH (09:22)
--- NOTE | 2024-02-06 09:56 | Orthopedic Consultation ---
Date of Service February 06, 2024 Assessment & Plan (1) Cellulitis of finger of right hand: I went over the diagnosis and treatment options with her at bedside. She is dealing with cellulitis of her right index finger. The CT scan shows no collective abscess and I do not see any surgical indications at this time. She can continue with the IV antibiotics. She can follow-up with orthopedics on an as-needed basis. History of Present Illness Reason for Consultation: Cellulitis right index finger. Requesting Physician: . Attending Physician: Sid Rogers MD Chary is a pleasant 39-year-old female who was bitten on her right index finger by her guinea pig. She began to develop some redness of the finger. She came to the emergency room and was admitted to the hospitalist service to start her IV antibiotics. X-rays are negative and a CT scan of the right index finger shows no abscess. Orthopedics was consulted to evaluate and treat.. Allergies Allergy/AdvReac Type Severity Reaction Status Date / Time nitrofurantoin Allergy Severe Vomiting Unverified 08/10/23 12:12 [From Macrobid] amoxicillin AdvReac Mild Gastrointestinal Verified 08/10/23 12:12 Upset clavulanic acid AdvReac Mild Gastrointestinal Verified 08/10/23 12:12 Upset Penicillins AdvReac Mild Gastrointestinal Verified 08/10/23 12:12 Upset phenazopyridine AdvReac Mild Gastrointestinal Verified 08/10/23 12:12 Upset Home Medications Medication Instructions Recorded Confirmed Type ferrous sulfate 325 mg (65 mg 325 mg PO QAM 02/23/19 02/05/24 History iron) tablet omeprazole 40 mg capsule,delayed 40 mg PO QAM 02/23/19 02/05/24 History release cholecalciferol (vitamin D3) 125 5,000 unit PO QAM 03/08/19 02/05/24 History mcg (5,000 unit) tablet (Vitamin D3) doxylamine succinate 25 mg tablet 25 mg PO HS PRN Insomnia 09/18/19 02/05/24 History (Unisom (doxylamine)) drospirenone 3 mg-ethinyl 1 tab PO QAM 08/10/23 02/05/24 History estradiol 0.02 mg tablet acetaminophen 500 mg tablet 1,000 mg PO Q4 PRN Pain 02/05/24 02/05/24 History (Tylenol Extra Strength) escitalopram oxalate 20 mg tablet 20 mg PO QAM 02/05/24 02/05/24 History ibuprofen 200 mg tablet 400 mg PO Q4 PRN Pain 02/05/24 02/05/24 History Past Med/Surg History Problem List Cellulitis of finger of right hand (Acute) Animal bite of finger (Acute) Encounter for pre-operative examination Post-term with 40-42 completed weeks of gestation Iron deficiency Medical History RAGHAVENDRA II (cervical intraepithelial neoplasia II) 2011 History of blood transfusion 3RD DEGREE TEAR AFTER 1ST DELIVERY> SEP 12 2016 Slow to wake up after anesthesia Fallen bladder GERD (gastroesophageal reflux disease) Kidney stone PASSED Asthma WELL CONTROLLED> RARE INH USE Surgical History H/O colposcopy with cervical biopsy 2010 History of tooth extraction WISDOM No pertinent past surgical history Family History Other Cancer Social History Smoking Status: Former smoker Second Hand Exposure: No; Do You Dip or Chew Tobacco: No; Hx Alcohol Use: Yes Alcohol type: wine Hx Substance Use: No Preferred Language: Luxembourgish Communication Ability: Effective Installation Helper Required: No Beliefs That Will Affect Care: None marital status: Current Living Situation: Spouse and Family Current Living Situation Comment: Lives with and 3 y/o son Other Information That Helps Us Care for You: No Feels Safe at Home: Yes Safety Concerns: Feels Safe At This Time Assistive Devices: None Review of Systems All systems reviewed & are unremarkable except as noted in HPI & below. Physical Exam On physical exam of the right index finger, there is minimal tenderness palpation along the flexor tendon sheath. She does have some swelling to the finger. She can only flex it about 20% normal flexion. She has very little pain on the extensor side. There is a small animal bite wound over the distal phalanx.. Constitutional WD/WN, vitals as above Eyes PERRL, conjunctivae normal, anicteric sclerae ENMT external ear and nose normal, oropharynx normal Neck trachea midline, no thyromegaly Respiratory normal respiratory effort Cardiovascular RRR, no murmur, no edema Gastrointestinal (Abdomen) normal bowel sounds, soft, nontender, no hepatosplenomegaly Psychiatric A+Ox3, euthymic affect Results & Data Results & Data Laboratory Results . Diagnostic Findings X-rays of the right index finger were reviewed and are negative CT scan of the right index finger was reviewed and shows signs of cellulitis but no collective abscess.. PG Care Time/CCT Total # of Minutes Spent Total Time Spent with Patient: Total time spent is greater than 50% in coordination of care (as documented) at patient's floor/unit and/or counseling patient: Coding Level of Care Code 54481 IN/OBS CONSULT LVL 4,60M Diagnoses Cellulitis of finger of right hand L03.011
[2024-02-06] MEDS: ACETAMINOPHEN 500 MG TAB PO SCH (14:38)
--- NOTE | 2024-02-07 15:07 | Hospitalist Progress Note ---
Date of Service February 07, 2024 Assessment & Plan (1) Animal bite of finger: (2) Cellulitis of finger of right hand: Plan: 39-year-old female with history of GERD, rhinitis, etc. presenting with a guinea pig bite to the right index finger yesterday with progressive swelling and pain. Infected animal bite, cellulitis, right index finger Rule out abscess Right hand x-ray: No acute fracture CT hand with contrast ordered to rule out abscess IV Unasyn plus doxycycline IV NSS Toradol and [place] as needed for pain If patient has abscess on the right finger, or if the cellulitis does not show improvement, will consult orthopedic surgery 02/05 CT hand: no abscess, fractures pain and edema progressed overnight will consult Ortho Tylenol 1 g q8, PRN Oxy continue IV Unasyn + Doxycycline 02/06 Pain improving as well as edema and erythema Blood cultures negative so far Afebrile Continue IV Unasyn plus doxycycline Continue to monitor closely Hopefully may be able to be discharged tomorrow History of GERD Continue famotidine and omeprazole Allergic rhinitis Continue Flonase, Zyrtec DVT prophylaxis SCDs for now Admission and Anticipated Discharge Date Admission Date: February 05, 2024 Subjective Follow-up for right index finger cellulitis, animal bite, etc. Seen sitting up in bed, comfortable Reports improvement in pain of the right finger, but still quite significant Able to move the right finger better than yesterday No other pain in the right hand, wrist No fevers or chills No other new symptoms Review of Systems Review of Systems: all noted and negative except for above Physical Exam Physical Exam: General- oriented x 3, not in distress, speaks in sentences with no effort or accessory muscle use Eyes- anicteric Neck- no JVD Lungs- clear breath sounds bilaterally, no rales/wheezes Heart- normal rate, regular rhythm; no murmurs Abdomen- normal bowel sounds, nondistended, soft, nontender Extremities- no pretibial edema, no calf tenderness Right index finger: Mild edema, very mild erythema, no warmth, mild tenderness Range of motion improving Neuro- alert, oriented x 3; no gross focal neurologic deficits Skin- warm & dry Results & Data Results & Data Vital Signs (Past 12 Hours) Vital Signs Temp Pulse Resp BP Pulse Ox O2 Del Method 02/07/24 14:53 36.7 C 88 14 95/61 L 98 Room Air 02/07/24 07:05 36.7 C 75 14 96/62 L 97 Room Air all noted and reviewed including below
--- NOTE | 2024-02-08 07:12 | Orthopedic Progress Note ---
Date of Service February 08, 2024 Assessment & Plan (1) Cellulitis of finger of right hand: She is still dealing with a lot of swelling of her finger. The swelling has not improved much but the redness is slightly improved. I do not see any signs of a new abscess collection. She has a CT scan of her right hand about 48 hours ago which shows no abscess collection and I do not see any evidence to think that a new abscess has formed. As I told her 2 days ago, I find that the symptoms usually worsen over the first 48 hours on IV antibiotics before they start to improve. I think she will do fine continuing with the antibiotic regimen. I do not see any operative indications at this point. Golden Diez was seen and examined at bedside this morning. She still has swelling and pain on the flexor side of her right index finger. This seems minimally improved from admission. She has been on the IV antibiotics. No other complaints.. Review of Systems All systems reviewed & are unremarkable except as noted in HPI & below. Physical Exam On physical exam of the right finger, she has about 20% normal flexion of her DIP and PIP joints. She does have pain along the flexor side but it seems to dissipate by the time we get to the MCP joint. She has no pain on the extensor side. There is no obvious localized abscess collection. The redness is slightly improved from a few days ago but the overall swelling is about the same.. Results & Data Results & Data Laboratory Results . Diagnostic Findings . PG Care Time/CCT Total # of Minutes Spent Total Time Spent with Patient: Total time spent is greater than 50% in coordination of care (as documented) at patient's floor/unit and/or counseling patient: Coding Level of Care Code 42112 Post Operative Follow-Up Diagnoses Cellulitis of finger of right hand L03.011
[2024-02-08] MEDS ORDERED: MAGNESIUM HYDROXIDE SUSP 30 ML UDC PO PRN (11:04)
[2024-02-08] MEDS: POLYETHYLENE (MIRALAX) 17 GM PACK PO SCH (11:20)
--- NOTE | 2024-02-08 11:32 | Hospitalist Progress Note ---
Date of Service February 08, 2024 Assessment & Plan (1) Animal bite of finger: (2) Cellulitis of finger of right hand: Plan: 39-year-old female with history of GERD, rhinitis, etc. presenting with a guinea pig bite to the right index finger yesterday with progressive swelling and pain. Infected animal bite, cellulitis, right index finger Right hand x-ray: No acute fracture CT hand with contrast ordered to rule out abscess IV Unasyn plus doxycycline IV NSS Toradol and [place] as needed for pain 02/05 CT hand: no abscess, fractures 02/07 Afebrile, blood cultures negative Patient's pain and right index finger edema/erythema progressed since yesterday late afternoon Requested Ortho to reevaluate the patient, was seen this morning, no surgical intervention recommended at this point, continue to monitor closely Will consult ID for further recommendations Continue IV Unasyn plus doxycycline for now Added as needed morphine IV for pain control History of GERD Continue famotidine and omeprazole Allergic rhinitis Continue Flonase, Zyrtec DVT prophylaxis Start Lovenox SC Admission and Anticipated Discharge Date Admission Date: February 05, 2024 Subjective Follow-up for right index finger infected animal bite wound, cellulitis, etc. Still having significant pain since last night No fevers or chills Still has limited range of motion to the right index finger No other new symptom Review of Systems Review of Systems: all noted and negative except for above Physical Exam Physical Exam: General- oriented x 3, not in distress, speaks in sentences with no effort or accessory muscle use Eyes- anicteric Neck- no JVD Lungs- clear breath sounds bilaterally, no rales/wheezes Heart- normal rate, regular rhythm; no murmurs Abdomen- normal bowel sounds, nondistended, soft, nontender Extremities- no pretibial edema, no calf tenderness Right index finger: Moderate edema, mild erythema, mild warmth and tenderness, no bleeding or discharge from the small linear wound in the DIP crease, limited range of motion due to pain Neuro- alert, oriented x 3; no gross focal neurologic deficits Skin- warm & dry Results & Data Results & Data Vital Signs (Past 12 Hours) Vital Signs Temp Pulse Resp BP Pulse Ox O2 Del Method 02/08/24 07:24 36.4 C L 71 16 102/65 98 Room Air all noted and reviewed including below
[2024-02-08] MEDS: ENOXAPARIN INJ 40 MG/0.4 ML SYR SQ SCH (17:51)
[2024-02-08] MEDS: MoRPHine SULFATE 4 MG/ML 1 ML CARP\\VIAL IV PRN (21:10)
[2024-02-09 06:31] LABS: Hematocrit (blood only) 31.7 % (37.0-47.0); Hemoglobin 10.6 g/dl (12.0-16.0); Mean Corpuscular Hemoglobin 30.2 pg (25.0-34.0); Mean Corpuscular Hgb Conc 33.4 g/dL (32.0-36.0); Mean Corpuscular Volume 90.3 fL (80.0-100.0); Platelet Count 300 K/uL (130-400); RDW Coefficient of Variation 12.9 % (11.5-14.5); RDW Standard Deviation 42.6 fL (36.4-46.3); Red Blood Count 3.51 M/uL (4.20-5.40); White Blood Count 9.15 K/ul (4.8-10.8)
[2024-02-09 06:54] LABS: Basophils # (auto) 0.04 K/uL (0.00-0.20); Basophils % (auto) 0.4 %; Eosinophils % (auto) 2.2 %; Immature Granulocytes # (auto) 0.03 K/uL (0.01-0.20); Immature Granulocytes % (auto) 0.3 %; Lymphocytes # (auto) 4.62 K/uL (1.20-3.40); Lymphocytes % (auto) 50.5 %; Monocytes # (auto) 0.57 K/uL (0.11-0.59); Monocytes % (auto) 6.2 %; Neutrophils # (auto) 3.69 K/uL (1.40-6.50); Neutrophils % (auto) 40.4 %
--- NOTE | 2024-02-09 12:34 | Hospitalist Progress Note ---
Date of Service February 09, 2024 Assessment & Plan (1) Animal bite of finger: (2) Cellulitis of finger of right hand: Plan: 39-year-old female with history of GERD, rhinitis, etc. presenting with a guinea pig bite to the right index finger yesterday with progressive swelling and pain. Infected animal bite, cellulitis, right index finger Right hand x-ray: No acute fracture CT hand with contrast ordered to rule out abscess IV Unasyn plus doxycycline IV NSS Toradol and [place] as needed for pain 02/05 CT hand: no abscess, fractures 02/07 Afebrile, blood cultures negative Patient's pain and right index finger edema/erythema progressed since yesterday late afternoon Requested Ortho to reevaluate the patient, was seen this morning, no surgical intervention recommended at this point, continue to monitor closely Will consult ID for further recommendations Continue IV Unasyn plus doxycycline for now Added as needed morphine IV for pain control 02/08 ID consult pending, for now cont. IV unasyn + doxy as above Pt reports more pain and swelling, ortho notified as well No fevers, chills or any other new symptoms History of GERD Continue famotidine and omeprazole Allergic rhinitis Continue Flonase, Zyrtec DVT prophylaxis Lovenox SC Admission and Anticipated Discharge Date Admission Date: February 05, 2024 Subjective Follow-up for right index finger infected animal bite wound, cellulitis, etc. Still having significant pain and swelling No fevers or chills Still has limited range of motion to the right index finger No other new symptom Review of Systems Review of Systems: All systems reviewed & are unremarkable except as noted in Subjective Physical Exam Physical Exam: General- oriented x 3, not in distress, speaks in sentences with no effort or accessory muscle use Eyes- anicteric Neck- no JVD Lungs- clear breath sounds bilaterally, no rales/wheezes Heart- normal rate, regular rhythm; no murmurs Abdomen- normal bowel sounds, nondistended, soft, nontender Extremities- no pretibial edema, no calf tenderness Right index finger: + edema, + erythema, + tenderness, no bleeding or discharge from the linear wound in the DIP crease, limited range of motion due to pain and swelling Neuro- alert, oriented x 3; no gross focal neurologic deficits Skin- warm & dry Results & Data Results & Data Vital Signs (Past 12 Hours) Vital Signs Temp Pulse Resp BP Pulse Ox O2 Del Method 02/09/24 06:31 36.8 C 80 16 109/72 98 Room Air Laboratory Results 02/09/24 Range/Units 05:45 WBC 9.15 (4.8-10.8) K/ul RBC 3.51 L (4.20-5.40) M/uL Hgb 10.6 L (12.0-16.0) g/dl Hct 31.7 L (37.0-47.0) % MCV 90.3 (80.0-100.0) fL MCH 30.2 (25.0-34.0) pg MCHC 33.4 (32.0-36.0) g/dL RDW Std Deviation 42.6 (36.4-46.3) fL RDW Coeff of Ambreen 12.9 (11.5-14.5) % Plt Count 300 (130-400) K/uL MPV 10.0 (9.4-12.4) fL Immature Gran % (Auto) 0.3 % Neut % (Auto) 40.4 % Lymph % (Auto) 50.5 % [place] % (Auto) 6.2 % Eos % (Auto) 2.2 % Baso % (Auto) 0.4 % Neut # (Auto) 3.69 (1.40-6.50) K/uL Lymph # (Auto) 4.62 H (1.20-3.40) K/uL [place] # (Auto) 0.57 (0.11-0.59) K/uL Eos # (Auto) 0.20 (0.00-0.50) K/uL Baso # (Auto) 0.04 (0.00-0.20) K/uL Immature Gran # (Auto) 0.03 (0.01-0.20) K/uL Medications Administered Current Inpatient Medications Acetaminophen (Acetaminophen 500 Mg Tab) 1,000 mg PO Q8H NELLIE Stop: 03/07/24 13:59 Last Admin: 02/09/24 05:16 Dose: 1,000 mg Cetirizine HCl (Cetirizine Oral Soln 1 Mg/Ml) 10 mg PO DAILY [facility]LLIE Stop: 03/07/24 08:59 Last Admin: 02/09/24 08:52 Dose: 10 mg Doxycycline Hyclate (Doxycycline Hyclate 100 Mg Cap) 100 mg PO BID [facility] Stop: 02/12/24 20:59 Last Admin: 02/09/24 08:53 Dose: 100 mg Enoxaparin Sodium (Enoxaparin Inj 40 Mg/0.4 Ml Syr) 40 mg SQ Q24H [facility] Stop: 03/09/24 17:14 Last Admin: 02/08/24 17:51 Dose: 40 mg Escitalopram Oxalate (Escitalopram Oxalate 20 Mg Tab) 20 mg PO QAM [facility] Stop: 03/07/24 08:59 Last Admin: 02/09/24 08:52 Dose: 20 mg Ferrous Sulfate (Ferrous Sulfate 325 Mg Tab) 325 mg PO QAM [facility] Stop: 03/07/24 08:59 Last Admin: 02/09/24 08:53 Dose: 325 mg Fluticasone Propionate (Fluticasone Propionate Na Spr 16 Gm Btl) 2 sprays NA BID [facility] Stop: 03/06/24 20:59 Last Admin: 02/09/24 08:52 Dose: 2 sprays Promethazine HCl (Phenergan) 12.5 mg in 50.5 mls @ 202 mls/hr IV Q6H PRN PRN Reason: Nausea And Vomiting Stop: 03/06/24 19:53 Ampicillin Sodium/Sulbactam Sodium (Unasyn) 3,000 mg in 100 mls @ 200 mls/hr IV Q6H [facility] Stop: 02/13/24 00:00 Last Admin: 02/09/24 11:41 Dose: 200 mls/hr Ketorolac Tromethamine (Ketorolac Tromethamine 15 Mg/Ml Vial) 15 mg IV Q6H PRN PRN Reason: Pain & Pre PT Stop: 02/10/24 19:53 Last Admin: 02/09/24 09:00 Dose: 15 mg Lactobacillus Acidophilus (Advanced Probiotic 625 Mg Capsule) 1,250 mg PO DAILY [facility] Stop: 03/06/24 19:53 Last Admin: 02/09/24 08:52 Dose: 1,250 mg Lorazepam (Lorazepam 0.5 Mg Tab) 0.5 mg PO Q6H PRN PRN Reason: Anxiety Stop: 03/06/24 19:10 Magnesium Hydroxide (Magnesium Hydroxide Susp 30 Ml Udc) 30 ml PO Q6H PRN PRN Reason: Constipation Stop: 11/21/24 11:03 Morphine Sulfate (Morphine Sulfate 4 Mg/Ml 1 Ml Carp\Vial) 3 mg IV Q4H PRN PRN Reason: Pain Stop: 02/22/24 11:03 Last Admin: 02/09/24 05:23 Dose: 3 mg Oxycodone HCl (Oxycodone Hcl Ir 5 Mg Tab (Immediate Release)) 5 mg PO Q4H PRN PRN Reason: moderate to severe pain Stop: 02/20/24 08:11 Last Admin: 02/08/24 05:43 Dose: 5 mg Pantoprazole Sodium (Pantoprazole 40 Mg Tab) 40 mg PO QAM [facility] Stop: 03/07/24 08:59 Last Admin: 02/09/24 08:52 Dose: 40 mg Polyethylene Glycol (Polyethylene (Miralax) 17 Gm Pack) 17 gm PO DAILY [facility] Stop: 03/09/24 11:14 Last Admin: 02/09/24 08:53 Dose: 17 gm
--- NOTE | 2024-02-09 12:46 | Infectious Disease Consult ---
Date of Service February 09, 2024 Telehealth Information I performed this visit using a real-time telehealth connection between my location and the patients location ([facility]). After connecting through interactive tele-video, patient was identified by name and date of and/or wristband check.Patient (or authorized healthcare patient representative) was informed that this was a telemedicine visit and it was being conducted confidentially over secure lines. My office door was closed and no one else was present in the room with me.Patient (or authorized healthcare patient representative) provided consent to proceed with the visit, expressed an understanding of privacy and security of the telemedicine visit, and gave permission to have a hospital patient representative in the room in order to assist with the visit and to conduct portions of the visit, as needed. I informed the patient (or authorized healthcare patient representative) that I reviewed their record and presented the opportunity for them to ask any questions regarding the visit today. The patient agreed to participate. Assessment & Plan (1) Cellulitis of finger of right hand: (2) Animal bite of finger: Plan - Skin and soft tissue Infection due Guinea pig bite should be treated exactly as that of infection due to cat bite. Therefore, I would recommend continuing on IV Unasyn while inpatient. No need for doxycycline at this point. - Based on how the finger looks during the telemed encounter and the worsening welling, I would recommend contacting the orthopedic again to assess for possible surgical intervention. If no plan for any surgical intervention, then, I would recommend repeating the CT scan of Rt hand. - Thank you for consulting Infectious Disease. We will continue to follow. History of Present Illness History of Present Illness Ms. Lee is a 39-year-old woman with no known significant medical history who was admitted to [facility] on 02/05/2024 because of infected right index finger after a Guinea pig bite. One day prior to presentation, when she was trying to separate her pet Guinea pigs from each other, one of them bit her right index finger. She did have a lot of bleeding from the wound and she tried to apply some alcohol and antibiotic ointment. However, she continued to have pain and noticed progressive swelling and redness over the next day which prompted her to come to the emergency department. CT of the hand on presentation showed soft tissue swelling about the 2nd digit without drainable fluid collection or evidence of underlying osteomyelitis. She was seen by the orthopedic team at bedside and they did not recommend any surgical interventions. She has been on IV Unasyn since admission. ID team was consulted for further recommendations and to help guide antibiotic treatment. During today's encounter, she mentioned that the redness might have improved a little but he swelling has gotten worse and there is a yellowish spot over the flexor side of the Rt index finger which has gotten bigger. Allergies Allergy/AdvReac Type Severity Reaction Status Date / Time nitrofurantoin Allergy Severe Vomiting Unverified 08/10/23 12:12 [From Macrobid] amoxicillin AdvReac Mild Gastrointestinal Verified 08/10/23 12:12 Upset clavulanic acid AdvReac Mild Gastrointestinal Verified 08/10/23 12:12 Upset Penicillins AdvReac Mild Gastrointestinal Verified 08/10/23 12:12 Upset phenazopyridine AdvReac Mild Gastrointestinal Verified 08/10/23 12:12 Upset Home Medications Medication Instructions Recorded Confirmed Type ferrous sulfate 325 mg (65 mg 325 mg PO QAM 02/23/19 02/05/24 History iron) tablet omeprazole 40 mg capsule,delayed 40 mg PO QAM 02/23/19 02/05/24 History release cholecalciferol (vitamin D3) 125 5,000 unit PO QAM 03/08/19 02/05/24 History mcg (5,000 unit) tablet (Vitamin D3) doxylamine succinate 25 mg tablet 25 mg PO HS PRN Insomnia 09/18/19 02/05/24 History (Unisom (doxylamine)) drospirenone 3 mg-ethinyl 1 tab PO QAM 08/10/23 02/05/24 History estradiol 0.02 mg tablet acetaminophen 500 mg tablet 1,000 mg PO Q4 PRN Pain 02/05/24 02/05/24 History (Tylenol Extra Strength) escitalopram oxalate 20 mg tablet 20 mg PO QAM 02/05/24 02/05/24 History ibuprofen 200 mg tablet 400 mg PO Q4 PRN Pain 02/05/24 02/05/24 History Patient History Medical History RAGHAVENDRA II (cervical intraepithelial neoplasia II) 2010 History of blood transfusion 3RD DEGREE TEAR AFTER 1ST DELIVERY> SEP 12 2016 Slow to wake up after anesthesia Fallen bladder GERD (gastroesophageal reflux disease) Kidney stone PASSED Asthma WELL CONTROLLED> RARE INH USE Surgical History H/O colposcopy with cervical biopsy 2010 History of tooth extraction WISDOM No pertinent past surgical history Family History Other Cancer Social History Smoking Status: Former smoker Second Hand Exposure: No; Do You Dip or Chew Tobacco: No; Hx Alcohol Use: Yes Alcohol type: wine Hx Substance Use: No Preferred Language: Czech Communication Ability: Effective 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 Physical Exam Couldn't be performed as the visit was performed via telemed. Results & Data Vital Signs (Past 12 Hours) Vital Signs Temp Pulse Resp BP Pulse Ox O2 Del Method 02/09/24 06:31 36.8 C 80 16 109/72 98 Room Air Laboratory Results Microbiology: 02/04: 2 sets of blood culture negative to date Diagnostic Findings Imaging: Right hand CT scan performed on 02/04: Soft tissue swelling about the second digit without drainable fluid collection or evidence of underlying osteomyelitis.
[2024-02-09] MEDS: OPTIRAY 320 100ml IV ONE (19:49)
[2024-02-09 20:37] VITALS: RESP 16
--- NOTE | 2024-02-09 22:08 | CT Scan Report ---
Exam(s): CT EXTREMITY RIGHT UPPER With Contrast IV Amt: 87 cc's optiray 320 EXAM: CT Right Upper Extremity With Intravenous Contrast, Hand CLINICAL HISTORY: Reason for exam: follow up / finger infection. TECHNIQUE: Axial computed tomography images of the right hand with intravenous contrast. CTDI is 19.67 mGy and DLP is 451.18 mGy-cm. Automated exposure control was utilized for the study. A dose lowering technique was utilized adhering to the principles of ALARA. CONTRAST: Patient received 87 cc's optiray 320 of IV contrast COMPARISON: 02/05/24 FINDINGS: Bones/joints: Unremarkable. No fracture or dislocation. No CT evidence of osteomyelitis. Soft tissues: Persistent soft tissue swelling and subcutaneous edema of the second finger suggesting cellulitis. No abscess. IMPRESSION: Persistent soft tissue swelling and subcutaneous edema of the second finger suggesting cellulitis. No abscess. Electronically signed by: Ignacio Houser M.D. 02/09/24 22:06 PM
[2024-02-10 06:56] LABS: Hemoglobin 11.2 g/dl (12.0-16.0); Mean Corpuscular Hemoglobin 29.7 pg (25.0-34.0); Mean Corpuscular Hgb Conc 32.9 g/dL (32.0-36.0); Mean Corpuscular Volume 90.2 fL (80.0-100.0); Mean Platelet Volume 9.6 fL (9.4-12.4); Platelet Count 317 K/uL (130-400); RDW Standard Deviation 42.7 fL (36.4-46.3); Red Blood Count 3.77 M/uL (4.20-5.40)
[2024-02-10 07:04] LABS: BUN Creatinine Ratio 20.3 (10-20); Calcium 8.7 mg/dl (8.6-10.3); Creatinine Clr Calc Pharmacy 108.8 ml/min; Magnesium 1.9 mg/dl (1.7-2.4); Potassium 4.3 mmol/L (3.5-5.1)
--- NOTE | 2024-02-10 07:31 | Hospitalist Progress Note ---
Date of Service February 10, 2024 Assessment & Plan (1) Animal bite of finger: (2) Cellulitis of finger of right hand: Plan: 39-year-old female with history of GERD, rhinitis, etc. presenting with a guinea pig bite to the right index finger yesterday with progressive swelling and pain. Infected animal bite, cellulitis, right index finger Right hand x-ray: No acute fracture CT hand with contrast ordered to rule out abscess IV Unasyn plus doxycycline IV NSS Toradol and [place] as needed for pain 02/05 CT hand: no abscess, fractures 02/07 Afebrile, blood cultures negative Patient's pain and right index finger edema/erythema progressed since yesterday late afternoon Requested Ortho to reevaluate the patient, was seen this morning, no surgical intervention recommended at this point, continue to monitor closely Will consult ID for further recommendations Continue IV Unasyn plus doxycycline for now Added as needed morphine IV for pain control 02/08 ID consult pending, for now cont. IV unasyn + doxy as above Pt reports more pain and swelling, ortho notified as well No fevers, chills or any other new symptoms ID consulted - CT hand repeated - no osteo, no abscess. c/w cellulitis, soft tissue edema - cont. IV unasyn 02/09 Wound drained pus and some blood, less edematous now, less erythema, overall feels better and less painful. Will try to obtain wound cultx No surg. intervention needed at this time History of GERD Continue famotidine and omeprazole Allergic rhinitis Continue Flonase, Zyrtec DVT prophylaxis Lovenox SC Admission and Anticipated Discharge Date Admission Date: February 05, 2024 Subjective Follow-up for right index finger infected animal bite wound, cellulitis, etc. Overnight finger drained pus and some blood, then drained again this AM. Swelling and redness is down, pt feels much better will try to obtain wound cultx No fevers or chills No other new symptom Review of Systems Review of Systems: All systems reviewed & are unremarkable except as noted in Subjective Physical Exam Physical Exam: General- oriented x 3, not in distress, speaks in sentences with no effort or accessory muscle use Eyes- anicteric Neck- no JVD Lungs- clear breath sounds bilaterally, no rales/wheezes Heart- normal rate, regular rhythm; no murmurs Abdomen- normal bowel sounds, nondistended, soft, nontender Extremities- no pretibial edema, no calf tenderness Right index finger: + edema (improved), + erythema (improved), + tenderness (improved), + discharge from the linear wound in the DIP crease, limited range of motion due to pain and swelling Neuro- alert, oriented x 3; no gross focal neurologic deficits Skin- warm & dry Results & Data Results & Data Vital Signs (Past 12 Hours) Vital Signs Temp Pulse Resp BP Pulse Ox O2 Del Method 02/09/24 20:36 36.9 C 72 16 106/70 97 Room Air Laboratory Results 02/10/24 Range/Units 06:23 WBC 8.00 (4.8-10.8) K/ul RBC 3.77 L (4.20-5.40) M/uL Hgb 11.2 L (12.0-16.0) g/dl Hct 34.0 L (37.0-47.0) % MCV 90.2 (80.0-100.0) fL MCH 29.7 (25.0-34.0) pg MCHC 32.9 (32.0-36.0) g/dL RDW Std Deviation 42.7 (36.4-46.3) fL RDW Coeff of Ambreen 13.0 (11.5-14.5) % Plt Count 317 (130-400) K/uL MPV 9.6 (9.4-12.4) fL Sodium 138 (136-145) mmol/L Potassium 4.3 (3.5-5.1) mmol/L Chloride 103 (98-107) mmol/L Carbon Dioxide 27 (21-32) mmol/L Anion Gap 8 (3-11) BUN 15 (6-23) mg/dl Creatinine 0.74 (0.6-1.2) mg/dl Est Cr Clr Drug Dosing 108.8 ml/min eGFR 106.14 BUN/Creatinine Ratio 20.3 H (10-20) Glucose 83 (70-99(Fasting)) mg/dl Calcium 8.7 (8.6-10.3) mg/dl Phosphorus 5.0 H (2.5-4.9) mg/dl Magnesium 1.9 (1.7-2.4) mg/dl Medications Administered Current Inpatient Medications Acetaminophen (Acetaminophen 500 Mg Tab) 1,000 mg PO Q8H [facility] Stop: 03/07/24 13:59 Last Admin: 02/10/24 05:02 Dose: 1,000 mg Cetirizine HCl (Cetirizine Oral Soln 1 Mg/Ml) 10 mg PO DAILY [facility] Stop: 03/07/24 08:59 Last Admin: 02/09/24 08:52 Dose: 10 mg Doxycycline Hyclate (Doxycycline Hyclate 100 Mg Cap) 100 mg PO BID [facility] Stop: 02/12/24 20:59 Last Admin: 02/09/24 19:36 Dose: 100 mg Enoxaparin Sodium (Enoxaparin Inj 40 Mg/0.4 Ml Syr) 40 mg SQ Q24H [facility] Stop: 03/09/24 17:14 Last Admin: 02/09/24 15:58 Dose: Not Given Escitalopram Oxalate (Escitalopram Oxalate 20 Mg Tab) 20 mg PO QAM [facility] Stop: 03/07/24 08:59 Last Admin: 02/09/24 08:52 Dose: 20 mg Ferrous Sulfate (Ferrous Sulfate 325 Mg Tab) 325 mg PO QAM [facility] Stop: 03/07/24 08:59 Last Admin: 02/09/24 08:53 Dose: 325 mg Fluticasone Propionate (Fluticasone Propionate Na Spr 16 Gm Btl) 2 sprays NA BID [facility] Stop: 03/06/24 20:59 Last Admin: 02/09/24 19:36 Dose: 2 sprays Promethazine HCl (Phenergan) 12.5 mg in 50.5 mls @ 202 mls/hr IV Q6H PRN PRN Reason: Nausea And Vomiting Stop: 03/06/24 19:53 Ampicillin Sodium/Sulbactam Sodium (Unasyn) 3,000 mg in 100 mls @ 200 mls/hr IV Q6H [facility] Stop: 02/13/24 00:00 Last Infusion: 02/10/24 05:39 Dose: Infused Ketorolac Tromethamine (Ketorolac Tromethamine 15 Mg/Ml Vial) 15 mg IV Q6H PRN PRN Reason: Pain & Pre PT Stop: 02/10/24 19:53 Last Admin: 02/10/24 05:05 Dose: 15 mg Lactobacillus Acidophilus (Advanced Probiotic 625 Mg Capsule) 1,250 mg PO DAILY [facility] Stop: 03/06/24 19:53 Last Admin: 02/09/24 08:52 Dose: 1,250 mg Lorazepam (Lorazepam 0.5 Mg Tab) 0.5 mg PO Q6H PRN PRN Reason: Anxiety Stop: 03/06/24 19:10 Magnesium Hydroxide (Magnesium Hydroxide Susp 30 Ml Udc) 30 ml PO Q6H PRN PRN Reason: Constipation Stop: 03/09/24 11:03 Morphine Sulfate (Morphine Sulfate 4 Mg/Ml 1 Ml Carp\Vial) 3 mg IV Q4H PRN PRN Reason: Pain Stop: 02/22/24 11:03 Last Admin: 02/09/24 05:23 Dose: 3 mg Oxycodone HCl (Oxycodone Hcl Ir 5 Mg Tab (Immediate Release)) 5 mg PO Q4H PRN PRN Reason: moderate to severe pain Stop: 02/20/24 08:11 Last Admin: 02/08/24 05:43 Dose: 5 mg Pantoprazole Sodium (Pantoprazole 40 Mg Tab) 40 mg PO QAM NELLIE Stop: 03/07/24 08:59 Last Admin: 02/09/24 08:52 Dose: 40 mg Polyethylene Glycol (Polyethylene (Miralax) 17 Gm Pack) 17 gm PO DAILY NELLIE Stop: 03/09/24 11:14 Last Admin: 02/09/24 08:53 Dose: 17 gm
[2024-02-10] MEDS: INFLUENZA VACC TS2024-25(6m+)/PF (IIV3) 0.5mL Syr IM ONE (15:00)
--- NOTE | 2024-02-10 15:15 | Orthopedic Progress Note ---
Date of Service February 10, 2024 Assessment & Plan (1) Cellulitis of finger of right hand: Repeat CT scan of the right hand still does not show any abscess collection. I really do not have much to operate on with his hand. She needs to continue her IV antibiotic treatment. We are awaiting final infectious disease recommendations. If any further questions please feel free to [place] text me at any time. Golden Diez was seen and examined at bedside this morning. She still dealing with pain and swelling of her right index finger. She had a repeat CT scan of her right hand yesterday which showed no abscess collection. She is currently on the IV antibiotics.. Review of Systems All systems reviewed & are unremarkable except as noted in HPI & below. Physical Exam Physical exam of the right index finger shows a small animal bite with some swelling of the index finger. She can only flex about 25% normal motion. She does have some pain along the flexor tendon sheath but not all the way up into the palm. Results & Data Results & Data Laboratory Results . Diagnostic Findings . PG Care Time/CCT Total # of Minutes Spent Total Time Spent with Patient: Total time spent is greater than 50% in coordination of care (as documented) at patient's floor/unit and/or counseling patient: Coding Level of Care Code 52664 SUB INP/OBS CARE 235MIN Diagnoses Cellulitis of finger of right hand L03.011
[2024-02-10 20:40] VITALS: TEMP 98.1
[2024-02-11 06:21] LABS: Hemoglobin 10.9 g/dl (12.0-16.0); Mean Corpuscular Hemoglobin 29.1 pg (25.0-34.0); Mean Corpuscular Hgb Conc 32.1 g/dL (32.0-36.0); Mean Corpuscular Volume 90.9 fL (80.0-100.0); Mean Platelet Volume 9.8 fL (9.4-12.4); Platelet Count 331 K/uL (130-400); RDW Coefficient of Variation 13.1 % (11.5-14.5); RDW Standard Deviation 43.1 fL (36.4-46.3); Red Blood Count 3.74 M/uL (4.20-5.40)
[2024-02-11 06:36] LABS: BUN Creatinine Ratio 28.8 (10-20); Calcium 8.7 mg/dl (8.6-10.3); Magnesium 1.9 mg/dl (1.7-2.4); Phosphorus 4.5 mg/dl (2.5-4.9); Potassium 4.3 mmol/L (3.5-5.1)
[2024-02-11 07:27] VITALS: BP 100/65; O2SAT 98
[2024-02-11] MEDS: IBUPROFEN 200 MG TAB PO STA (09:52)
--- NOTE | 2024-02-11 11:40 | Discharge Summary ---
Date of Service February 11, 2024 Admission HPI Per Admitting Provider 39-year-old female with history of GERD, rhinitis, etc. presenting with a guinea pig bite to the right index finger yesterday with progressive swelling and pain. Patient was trying to separate her pet guinea pigs when one of them bit her hard on the distal right index finger. She tried to remove her finger but the guinea pig resisted and continued to latch on to her finger. She was able to eventually remove her finger from the bite, and noted significant bleeding from the wound site. She applied alcohol and bacitracin to the wound. However, she continued to have persistent throbbing pain over the wound site and noticed progressive swelling and redness of the right index finger since yesterday. Today she was unable to flex her right finger prompting consult to the ER. At the ER, patient received afebrile, with stable vital signs. X-ray of the finger showed: Soft tissue swelling without evidence of underlying acute fracture. She was started on IV Unasyn. On my exam, patient seen resting in bed, not in distress. Reports persistent throbbing pain over the right finger. No fevers or chills, nausea vomiting or any other symptoms. Admission Exam Per Admitting Provider General- oriented x 3, not in distress, speaks in sentences with no effort or accessory muscle use Head- atraumatic Eyes- PERRL, EOMI, anicteric ENT- oropharynx clear Neck- supple, no JVD, no adenopathy, no thyromegaly; carotids +2/2, no bruits appreciated Lungs- clear to auscultation bilaterally, no rales/wheezes Heart- normal rate, regular rhythm; no murmur, no gallop, no rub appreciated Abdomen- normal bowel sounds, nondistended, soft, nontender, no masses or hepatosplenomegaly Extremities- no pretibial edema, no calf tenderness; peripheral pulses intact Right finger: Moderate edema of the entire right index finger, moderate erythema from mid to distal aspect, no warmth, minimal tenderness, Small scabbed linear wound on the ventral crease of the DIP joint Very limited range of motion due to swelling and pain Neuro- alert, oriented x 3; CN 2-12 grossly intact; motor 5/5 bilaterally;sensation 100% on all extremities; no other gross focal neurologic deficits Skin- warm & dry Principal Diagnosis Infected animal bite, cellulitis, right index finger Discharge Exam General- oriented x 3, not in distress, speaks in sentences with no effort or accessory muscle use Eyes- anicteric Neck- no JVD Lungs- clear breath sounds bilaterally, no rales/wheezes Heart- normal rate, regular rhythm; no murmurs Abdomen- normal bowel sounds, nondistended, soft, nontender Extremities- no pretibial edema, no calf tenderness Right index finger: + edema (improved), + erythema (improved), + tenderness (improved), + discharge from the linear wound in the DIP crease, limited range of motion due to pain and swelling Neuro- alert, oriented x 3; no gross focal neurologic deficits Skin- warm & dry Discharge Data Allergies Allergy/AdvReac Type Severity Reaction Status Date / Time nitrofurantoin Allergy Severe Vomiting Unverified 08/10/23 12:12 [From Macrobid] amoxicillin AdvReac Mild Gastrointestinal Verified 08/10/23 12:12 Upset clavulanic acid AdvReac Mild Gastrointestinal Verified 08/10/23 12:12 Upset Penicillins AdvReac Mild Gastrointestinal Verified 08/10/23 12:12 Upset phenazopyridine AdvReac Mild Gastrointestinal Verified 08/10/23 12:12 Upset Consultations 02/05/24 18:15 ED Decision to Admit Stat 02/06/24 08:07 Consult Orthopedic Surgery Routine 02/08/24 11:03 Consult Infectious Diseases Routine Ordered Studies 02/05/24 18:55 CT hand RT w con Urgent FINDINGS: The osseous structures are without fracture or dislocation. The joint spaces are maintained. No joint effusion is seen. Soft tissue swelling is seen about the second digit. IMPRESSION: Soft tissue swelling about the second digit without drainable fluid collection or evidence of underlying osteomyelitis. 02/09/24 18:02 CT hand RT w con Routine FINDINGS: Bones/joints: Unremarkable. No fracture or dislocation. No CT evidence of osteomyelitis. Soft tissues: Persistent soft tissue swelling and subcutaneous edema of the second finger suggesting cellulitis. No abscess. IMPRESSION: Persistent soft tissue swelling and subcutaneous edema of the second finger suggesting cellulitis. No abscess. Hospital Course (1) Animal bite of finger: (2) Cellulitis of finger of right hand: 39-year-old female with history of GERD, rhinitis, etc. presenting with a guinea pig bite to the right index finger yesterday with progressive swelling and pain. Infected animal bite, cellulitis, right index finger Right hand x-ray: No acute fracture CT hand with contrast ordered to rule out abscess IV Unasyn plus doxycycline IV NSS Toradol and [place] as needed for pain 02/05 CT hand: no abscess, fractures 02/07 Afebrile, blood cultures negative Patient's pain and right index finger edema/erythema progressed since yesterday late afternoon Requested Ortho to reevaluate the patient, was seen this morning, no surgical intervention recommended at this point, continue to monitor closely Will consult ID for further recommendations Continue IV Unasyn plus doxycycline for now Added as needed morphine IV for pain control 02/08 ID consult pending, for now cont. IV unasyn + doxy as above Pt reports more pain and swelling, ortho notified as well No fevers, chills or any other new symptoms ID consulted - CT hand repeated - no osteo, no abscess. c/w cellulitis, soft tissue edema - cont. IV unasyn 02/09 Wound drained pus and some blood, less edematous now, less erythema, overall feels better and less painful. Will try to obtain wound cultx No surg. intervention needed at this time wound cultx - pending Discussed w/ ID - Dr. Soriano - plan to switch to PO Augmentin on discharge - total 3week abx course History of GERD Continue famotidine and omeprazole Allergic rhinitis Continue Flonase, Zyrtec Total Time Total Time Spent Total Time Spent (In Minutes): 40 Discharge Plan Discharge Items Patient Disposition: Home - Self-Care Reason For Visit: ANIMAL BITE,RT FINGER Discharge Diagnosis: Infected animal bite, cellulitis, right index finger Condition on Discharge: Good Activity: Per Instructions section Non-emergency contact: Primary Care Provider and Specialist Call non-emergency contact if: you have any medication questions and your symptoms worsen Follow-up/Referrals: Savannah Lee DO [Primary Care Provider] - (Date & Time 02/14/2024 9:00 AM Provider Nabil Pandya MD [facility] ) Diet: Regular Addtl Attending Provider Instructions: Follow up with your primary care doctor, the appointment was scheduled for you. Finish antibiotic treatment as prescribed. Recommend taking probiotics while treated with antibiotics. For pain, take tylenol 1000 mg 3 times a day. You can occasionally also use ibuprofen. For more severe pain, take oxycodone as needed as prescribed. Pending Studies at Discharge: Yes (wound culture results) Stand-Alone Forms: My [facility], Smoking Cessation Medications and DC Order Prescriptions: New amoxicillin-pot clavulanate 875-125 mg tablet 1 tab PO BID 15 Days Qty: 30 0RF oxycodone 5 mg Tablet 5 mg PO Q4H PRN (Reason: pain) Qty: 10 0RF Advanced Probiotic 625 mg (10 billion cell) Capsule 1 cap PO DAILY Qty: 14 0RF Continued omeprazole 40 mg capsule,delayed release(DR/EC) 40 mg PO QAM Patient Comments: Patient states she hasn't taken her meds in a few days (03-08-19) ferrous sulfate 325 mg (65 mg iron) Tablet 325 mg PO QAM cholecalciferol (vitamin D3) [Vitamin D3] 5,000 unit Tablet 5,000 unit PO QAM Unisom (doxylamine) 25 mg Tablet 25 mg PO HS PRN (Reason: Insomnia) drospirenone-ethinyl estradiol 3-0.02 mg tablet 1 tab PO QAM escitalopram oxalate 20 mg tablet 20 mg PO QAM acetaminophen [Tylenol Extra Strength] 500 mg Tablet 1,000 mg PO Q4 PRN (Reason: Pain) ibuprofen 200 mg Tablet 400 mg PO Q4 PRN (Reason: Pain) Discharge Orders: Discharge Order (Routine); Ordered 02/11/24 Ordered By: Raymond Ybarra Admission Data Admit Date/Time: 02/05/24 18:30 Attending Provider: Raymond Ybarra Admit Provider: Sid Rogers Primary Care Provider: Savannah Lee Other Providers: Sid Rogers; Burton Kaye; Gianluca Hui; Piyush Dangelo; Gary Villafana I.; Jesús William II; Sparkle Barry; Rito Petersen; Mark Faye; Surjit Soriano
[2024-02-11 11:41] VITALS: PULSE 66
== END 2024-02-11 12:49 | disposition home or self-care (01) | DRG 603 ==
LOC: ED 17:05 → SUATTDRO 18:30 → 3E 18:30